=== PATIENT | male | born 1995 | race Caucasian/White ===

== ENCOUNTER 2018-09-27 10:40 | Inpatient (IN) | payer OTHER ==
[2018-09-27 11:20] LABS: PLATELET COUNT 190 10^3/uL (150-400)
--- NOTE | 2018-09-27 11:33 | EDPHY ---
H & P Stated Complaint: M1 - Personal History Current Tetanus/Diphtheria Vaccine: Yes Current Tetanus Diphtheria and Acellular Pertussis (TDAP): Yes - Medical/Surgical History Hx Asthma: No Hx Chronic Respiratory Disease: No Hx Diabetes: No Hx Cardiac Disease: No Hx Renal Disease: No Hx Cirrhosis: No Hx Alcoholism: No Hx HIV/AIDS: No Hx Splenectomy or Spleen Trauma: No - Social History Smoking Status: Never smoked Alcohol Use: None Time Seen by Provider: 09/27/18 10:48 HPI/ROS: CHIEF COMPLAINT: Homicidal ideation HISTORY OF PRESENT ILLNESS: 22-year-old male presents with homicidal ideation. He was at the crisis Center just prior to arrival and told the staff that he had been shooting animals. When they asked why, he stated that he wanted to get back at the government. The police took away his gun recently. He told the staff "what am I going to shoot now, kids in school?"The staff became very concerned about homicidal ideation and placed him on an M1 hold. He denies drugs or alcohol use in the last 24 hr. According to his mother, he has been diagnosed with multiple psychiatric illnesses and refuses to take medications. REVIEW OF SYSTEMS: complete 10 point ROS reviewed and is negative except for the noted elements in the HPI (Marely Pina) - Social History Additional Social History: Works at [employer] (Marely Pina) - Physical Exam Exam: General Appearance: Alert, cooperative Eyes: Pupils equal and round, no conjunctival pallor ENT, Mouth: Mucous membranes moist Neck: Normal inspection Respiratory: Lungs are clear to auscultation Cardiovascular: Regular rate and rhythm Gastrointestinal: Abdomen is soft and nontender Neurological: A&O, nonfocal, normal gait Skin: Warm and dry, no injuries Extremities: Inspection Psychiatric: Flat affect (Marely Pina) Constitutional: Initial Vital Signs Temperature (C) 36.9 C 09/27/18 10:53 Heart Rate 62 09/27/18 10:53 Respiratory Rate 18 09/27/18 10:53 Blood Pressure 103/59 L 09/27/18 10:53 O2 Sat (%) 97 09/27/18 10:53 O2 Delivery Mode Room Air Allergies/Adverse Reactions: No Known Allergies Allergy (Unverified 10/10/11 17:51) Home Medications: Medication Instructions Recorded [place] 03/14/12 Zoloft 03/14/12 Medical Decision Making ED Course/Re-evaluation: 3pm: signed over to Dr. Velasquez at shift change. eval pending. (Marely Pina) Other Provider: I assumed care of this patient from Dr. Pina at 3:00 p.m.. Once he learned that he would be staying in the emergency department the and that placement in a mental health facility was being sought, he became more agitated. He is given Ativan 1 mg p.r.n. Zyprexa 5 mg p.o.. Patient has been accepted at [address] [place] [address] for inpatient psychiatric hospitalization. I have completed the EMTALA form. He will be transferred by ambulance. ( Irina Velasquez) - Data Points Laboratory Results: Laboratory Results 09/27/18 11:11 09/27/18 11:11 09/27/18 09/27/18 09/27/18 11:15 11:11 11:11 WBC 4.73 10^3/uL 10^3/uL (3.80-9.50) RBC 4.70 10^6/uL 10^6/uL (4.40-6.38) Hgb 13.9 g/dL g/dL (13.7-17.5) Hct 43.3 % % (40.0-51.0) MCV 92.1 fL fL (81.5-99.8) MCH 29.6 pg pg (27.9-34.1) MCHC 32.1 g/dL L g/dL (32.4-36.7) RDW 12.2 % % (11.5-15.2) Plt Count 190 10^3/uL 10^3/uL (150-400) MPV 10.0 fL fL (8.7-11.7) Neut % (Auto) 57.9 % % (39.3-74.2) Lymph % (Auto) 33.0 % % (15.0-45.0) Barton % (Auto) 7.0 % % (4.5-13.0) Eos % (Auto) 1.1 % % (0.6-7.6) Baso % (Auto) 0.8 % % (0.3-1.7) Nucleat RBC Rel Count 0.0 % % (0.0-0.2) Absolute Neuts (auto) 2.74 10^3/uL 10^3/uL (1.70-6.50) Absolute Lymphs (auto) 1.56 10^3/uL 10^3/uL (1.00-3.00) Absolute Monos (auto) 0.33 10^3/uL 10^3/uL (0.30-0.80) Absolute Eos (auto) 0.05 10^3/uL 10^3/uL (0.03-0.40) Absolute Basos (auto) 0.04 10^3/uL 10^3/uL (0.02-0.10) Absolute Nucleated RBC 0.00 10^3/uL 10^3/uL (0-0.01) Immature Gran % 0.2 % % (0.0-1.1) Immature Gran # 0.01 10^3/uL 10^3/uL (0.00-0.10) Sodium 140 mEq/L mEq/L (135-145) Potassium 4.1 mEq/L mEq/L (3.5-5.2) Chloride 106 mEq/L mEq/L (97-110) Carbon Dioxide 28 mEq/l mEq/l (22-31) Anion Gap 6 mEq/L mEq/L (6-14) BUN 16 mg/dL mg/dL (7-23) Creatinine 0.9 mg/dL mg/dL (0.7-1.3) Estimated GFR > 60 Glucose 85 mg/dL mg/dL (70-100) Calcium 9.2 mg/dL mg/dL (8.5-10.4) Urine Opiates Screen NEGATIVE (NEGATIVE) Urine Barbiturates NEGATIVE (NEGATIVE) Ur Phencyclidine Scrn NEGATIVE (NEGATIVE) Ur Amphetamine Screen NEGATIVE (NEGATIVE) U Benzodiazepines Scrn NEGATIVE (NEGATIVE) Urine Cocaine Screen NEGATIVE (NEGATIVE) U Marijuana (THC) Screen NON-NEGATIVE H (NEGATIVE) Ethyl Alcohol < 10 mg/dL mg/dL (0-10) Medications Given: Discontinued Medications Lorazepam (Ativan) 1 mg PO EDNOW ONE Stop: 09/27/18 16:49 Last Admin: 09/27/18 16:55 Dose: 1 mg Olanzapine (Olanzapine) 5 mg PO ONCE ONE Stop: 09/27/18 16:49 Last Admin: 02/04/19 16:55 Dose: 5 mg Departure - Departure Disposition: [facility] Clinical Impression: Homicidal ideation Condition: Fair Referrals: Patient,NotPresent [Unknown] - As per Instructions
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
[2018-09-27] MEDS ORDERED: LORazepam 1 MG TAB PO ONE (16:48)
[2018-09-27] MEDS ORDERED: OLANZapine 5 MG TAB PO ONE (16:48)
[2018-09-27] MEDS ORDERED: MAGNESIUM HYDROXIDE 30 ML UDCUP PO PRN ×2 (22:00)
[2018-09-27] MEDS ORDERED: MAG HYDROX/AL HYDROX/SIMETH 30 ML UDCUP PO PRN (22:00)
[2018-09-27] MEDS ORDERED: ACETAMINOPHEN 325 MG TAB PO PRN (22:00)
--- NOTE | 2018-09-28 07:39 | ASMTTCLDSP ---
TLC Discharge Disposition Disposition: Answers: Admit Disposition Notes: Notes: Admit 3N. Discharge Concerns/Recommendations: Notes: In consultation with [facility] ED physician, Irina Velasquez MD, and on-call psychiatrist, Yassine Nova MD, both concurred that pt does appear to meet 27-65 criteria requiring psychiatric hospitalization as pt does appear to be an imminent risk of harm to self/others due to a mental illness condition. Was patient given the Answers: Yes Inpatient Behavioral Health Prohibited Belongings List while in the ED? For inpatient Yassine Nova MD admission, the following psychiatrist agreed to accept patient for admission to Behavioral Health ([facility]): Type of Hold: Answers: M1/72-hour Hold Hold initiated by: Answers: Police Date Signed: 09/28/2018 07:38 AM Electronically Signed By:Hari Pearson
--- NOTE | 2018-09-28 08:06 | ASMTBHMTP ---
Master Treatment Plan Master Treatment Plan Answers: Mood Instability with for: Psychosis Date: 09/27/2018 Diagnosis on Admission: homicidal ideation Expected length of stay: 3-5 days Reason for admission: Notes: Per Report: Pt is a 22 year old male who presented to [facility] Ed on an M1. Pt was at the crisis center and told the staff there that he had been shooting animals. When they asked why, he stated he wanted to get back at the government, The police took away his gun recently. Pt told the staff, What am I going to shoot now, Kids in school?" Pt stated he is here because "stuff that happened a couple weeks ago." Pt states he is upset about the police taking away his BB guns and taking "money "from him. Pt stated he is shooting animals because it is "my constitutional right." When asked about the comment he made to the staff at the [facility] about shooting a school, pt stated, " I was pretty high when I said that. I said, what am I supposed to do if I can't shoot animals. I didn't mean I was going to go shoot up a school." Pt denies SI/HI. Pt was living with his father in [place] but was kicked out this past June after he quit his job. Pt is now living with his mother and younger brother. When this chief underwriter met with CHRISTINE Donnelly alone, she stated, " He's not just shooting these animals, he's torturing them too. I have videos if you want to see them." Pt's mother Sabi has recordings of pt shooting rabbits and squirrels. The videos show pt shooting the animals and then recording the animals dying. [facility] Sabi also had a audio recording of pt talking with his younger brother threatening to shoot people at his younger brothers school, [employer] which was on 09/10/18. In the audio the pt is heard saying, " Fuck my job, fucking walk right into your school and start fucking shooting people." In addition to the audio and video recordings, pt had a picture of Josep Barajas on his phone. In June 2018, The FBI investigated pt due to a facebook posting pt made. Pt stated he posted a comment about "how mass shooters can get their hands on an Ar-15 but I can't get one for hunting." Pt stated the FBI showed up to his house at midnight to question him regarding the facebook posting. This chief underwriter notified case worker director Cassie Townsend about this case. Duty to warn was made. [place] Police were called and notified of pt's threat of a school shooting. Spoke with Officer Kirk . Report number [id number]. The FBI in [place] was also notified. Patient's stated presenting problems: Notes: "my mom" Patient's goals for treatment: Notes: "get out of here as soon as possible." Patient's strengths: Notes: none Identify supports outside of hospital: Notes: none Discharge criteria: Notes: Patient will demonstrate more stable mood by discharge.* Initial disposition plan/considerations: Notes: Return to work at [employer]. Master Treatment Plan Required Signatures Psychiatrist signature: Answers: Psychiatrist: RN on-shift signature: Answers: RN: Patient signature: Answers: Patient: Date Signed: 09/28/2018 08:06 AM Electronically Signed By:Benito Sierra
--- NOTE | 2018-09-28 10:52 | GCON ---
[f rep st] CONSULTATION DATE OF CONSULTATION: 09/28/2018 The patient is a 22-year-old gentleman with a history of psychiatric illness who was brought in on an M1 hold for homicidal thoughts. It sounds like a history of having a gun taken away and possible regan rming animals. He has a long history of psychiatric illness. When I speak to the patient, he denies recent fever, chills, cough, sputum, nausea, vomiting, diarrhe a. He says he smokes cigarettes. Does not drink a lot of alcohol. Does use drugs with a needle, mo st recently yesterday. Denies painful areas on his skin. REVIEW OF SYSTEMS: Complete 10-point review of systems conducted and negative except as noted in the HPI. PAST MEDICAL HISTORY: Psychiatric disorder, sounds like possible personality disorder. ALLERGIES: No known drug allergies. HOME MEDICATIONS: [place], Zoloft. SOCIAL HISTORY: As in the HPI. FAMILY HISTORY: Reviewed and unremarkable. PHYSICAL EXAMINATION: VITAL SIGNS: Temperature 36.8, blood pressure 127/72, pulse 53, breathing 14 times a minute, 97% on room air. GENERAL: No acute distress. Sclerae anicteric. Oropharynx clear. Mucous membranes moist. NECK: Supple without lymphadenopathy or JVD. LUNGS: Clear to auscultati on bilaterally. HEART: S1, S2. ABDOMEN: Soft, nontender, nondistended. LOWER EXTREMITIES: Witho ut edema. Calves are nontender. SKIN: Without rash. NEUROLOGIC: Exam is nonfocal. LABS: CBC is normal. Chem-7 is normal. Tox screen is negative for marijuana. Notably negative for opiates. ASSESSMENT/PLAN: A 22-year-old gentleman with homicidal ideation. 1. Homicidal ideation. Management per [employer] [facility]. 2. History of injection drug use. Given his tox screen it seems less likely that this is in fact tr ue. Would follow signs for skin infection; there is none on exam. 3. Disposition. Per [employer]. /[id number]/MODL
--- NOTE | 2018-09-28 11:34 | ASMTCMCOM ---
CM Note CM Note Notes: CC was able to out-reach client's employer ([employer]) at [phone]; spoke to Bryson who noted that "is fine and he will just need a doctor note before coming back to work." Date Signed: 09/28/2018 11:23 AM Electronically Signed By:Benito Sierra
--- NOTE | 2018-09-28 12:41 | ASMTLCPROG ---
Notes Note: Notes: AXIS I DIAGNOSIS Autism Spectrum Disorder 299.00(F84.0) Antisocial Personality Disorder 301.7( F60.2) Major Depressive Disorder, recurrent, severe 296.33 (F33.2) Attention Deficit/Hyperactivity Disorder combined presentation Date Signed: 09/28/2018 12:40 PM Electronically Signed By:Lucrecia Blakely
[2018-09-28] MEDS: NICOTINE POLACRILEX 2 MG GUM B PRN (16:51)
--- NOTE | 2018-09-28 20:12 | BAPA ---
[f rep st] ADMISSION PSYCHIATRIC ASSESSMENT DATE OF SERVICE: 09/28/2018 CHIEF COMPLAINT: "I don't need to be here, that transvestite loser lied." HISTORY OF PRESENT ILLNESS: Patient is a 22-year-old, male with a long history of developmental and mental health and behavioral issues. He was brought to the hospital by police after having presented with his mother for intake appointment at [facility]. 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 She states that the patient was actually precocious in most of his developmental milestones, but struggled to interact appropriately with others. This led to social issues and academic issues, and ultimately, he began to act out with substance use and oppositional defiant behaviors. When he was 14 years old, he began using marijuana, and then a close friend committed suicide when the patient was 16. Patient's mother stated that he "deteriorated a lot after that." She states that he was then hospitalized at [facility] due to his own thoughts of suicide. He was released to his mother's custody after that and she states he continued to voice suicidal ideations and actually attempted suicide within 3 hours of discharge. He was then taken to [facility] where he was hospitalized for 1 week and then discharged against his mother strenuous wishes due to continued suicidal ideation at that time. He also attempted suicide about 3 to 4 hours after this discharge and was taken to [facility] in [place] where he stayed for about a month. Patient's mother states that this was a very disagreeable environment and she ultimately affected a transfer to [facility] in [place]. The patient was treated there for about 10 months and then released to home with 20 hours of in-home therapy per week. He was diagnosed with Asperger's, attention deficit hyperactivity disorder, depression, anxiety, and possible bipolar disorder. Mother states that "he was diagnosed with just about everything, except schizophrenia." Mother states that the 20 hours per week of in-home therapy was not sufficient and she petitioned the court to order additional treatments as her now ex- disagreed with any mental health treatments at all. She states the cytogenetic technician did not agree and refused to order any additional treatments. The patient 's mother states then that she felt she had no choice and sent him to live with his father in [place] when he was 17. Mother states that he received no further treatment since that time. She reports that the patient's father never told her anything was going on, though she was aware there were difficulties. She would visit with the patient for about 2 weeks here and stated that he was somewhat strange, but did not act out. He did not go to mainstream classroom in [place] and was placed in special education. She states that he essentially did self-paced learning on the computer throughout high school. He graduated late, but did receive his high school diploma. He continued then to live with his father, and work at a fast food restaurant and the patient's mother states that he did well at that time. In June of this year, the FBI reportedly went to the patient's father 's home stating that he had been making threats to harm or kill people on Facebook and the patient's father "kicked him out." He then came to [place] to live with his mother. The plan was that the patient's father had saved up some money for him so that if he got a job and an apartment with a roommate that he could have this Thursday and begin a life. The patient's mother states that things went reasonably well when he first arrived and that he did look for work. 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 She states that he is always been punctual and consistent, and was able to maintain these jobs. Their home life, however, deteriorated. He functioned reasonably well at first, walking the dog and even cooking some meals , but then "things fell apart." He began using drugs heavily, including synthetic drugs he was ordering from [employer], Xanax, mushrooms, and daily marijuana. Patient's mother set a limit that he could not do drugs in the home or have any guns and he broke both of these fairly quickly. He was using marijuana on a daily basis and bought a BB gun, which he kept in the apartment. She also states that he was not capable of interacting with others or functioning independently. She states that "he can't think logically or reason." She also states "he has absolutely no regard for others." She states that he intended to go outside and take his BB gun shooting small animals in the neighborhood. The patient reports to me that he shot up to 800 small animals over the last year. He has numerous videos on his cell phone, which his mother copied show to me today where he would shoot a bird , a squirrel, or a rabbit and then torture it while it was dying. The patient states that he would do this "because people are mean to me so I'm mean to small animals." On one occasion, he was walking around the parking lot with what appeared to be a real pistol, but was his BB gun. The police were called and they confiscated the BB gun, but did not charge him with anything. Later, he was talking with his brother and his brother stated that he should not have that done. He then made the statement that "well, maybe I will just go shoot up your school." This concerned the patient's mother and she called the police , though they refused to do anything. She also took him to [facility] on several occasions and they refused to provide any services because he had private insurance, even though it did not cover mental health treatments. Ultimately, the patient was able to receive Medicaid and she took him in for a screening at [facility], at which time the therapist there stated that he was "way out of the scope of what we treat" and she called the police to place him on an M1 hold. He reportedly made statements about harming animals and possibly harming or killing himself. His mother states that he has said on several occasions that he would kill himself in front of her. I interviewed the patient today, and he was talkative and interactive, though was fairly hostile. He stated that the person at [facility] who he repeatedly referred to as a "transvestite" placed him on an M1 hold for essentially no reason and that he did not need to be in the hospital. He then freely admitted that he had been killing many small animals and torturing them, including "burning their face off." What he stated he would do is wound them with the BB gun and then hold them while they were still alive and take a torch and burned their faces. He stated that "this obviously really hurt and they suffered a lot." When asked if this made him feel better, he stated "if people are mean to me, then I'm mean to the animals." He was seen later in treatment planning meeting with the team and he was very angry, raising his voice, and stating that it is our fault that he was going to harm more animals. He stated "I was going to quit hurting animals, but now you have made me stay here, so I am going to hurt 100 animals for every hour that I have to be here against my will. You think you want to protect animals, but actually now more are going to get hurt. You're really in for it now." Patient is not forthcoming of much other information. He is quite guarded, though does state on several occasions during the interview that he believes the government is persecuting him and taking away various of his rights under the constitution. He will typically refer to these as amendments with a number. At one point, he states "they took away my 2nd amendment, 4th amendment , 7th amendment, and 9th amendment rights." He states that he is angry essentially at the world because he is unhappy in his life and that he takes it out on small animals to feel better. PAST PSYCHIATRIC HISTORY: Significant for 4 or 5 previous psychiatric hospitalizations. Patient's mother states that his first hospitalization was at age 16 as mentioned above. His last hospitalization was at approximately age 17. He reportedly got no treatment whatsoever between 17 and 22 while he was living with his father in [place]. Patient's mother states that patient's father "does not believe in mental health problems and refused to take him for any treatments. ALLERGIES: No known medical allergies. CURRENT MEDICATIONS: None. PAST MEDICAL HISTORY: Noncontributory. DEVELOPMENTAL HISTORY: Patient's mother states he was a normal with a term vaginal delivery without complications. He reached all of his milestones on-time or early, walking at 9 months and talking in complete sentences by the age of 4. She states he was notably earlier at all of these things than his peers. She reports normal height and weight, as well as head circumference throughout his childhood. He had no unusual or serious childhood illnesses. He did have a tendency to injure himself, however, having broken both of his legs and injured both eyes accidentally. He had delayed fine motor , but normal gross motor skills. She states he always struggled socially and has never really had friends. He had 1 friend while living in [place], but she states that he was a drug dealer and that all he did with his friend was do drugs and drink. She states that he is intelligent, but struggled academically in high school, graduating late and requiring special education. She states that his special education was also due to the fact that he was on a "violence plan." This was due to his having made threats toward others. She denies any history of actual violence. He has no history of legal problems or half-way. SUBSTANCE ABUSE HISTORY: Patient has used marijuana since the age of 14. He states that he smokes it "all day" and that he would prefer to dab, but does not have enough money. He states at one point that "I'm going to continue to hurt animals until the government will pay for my wax." He has history of also ordering "synthetic drugs" from [employer], using Xanax and taking hallucinogenic mushrooms. He has some history of possible binge alcohol use. FAMILY HISTORY: Patient denies any family history of mental illness. ADMISSION LABORATORY: CBC is normal. Serum chemistries are normal. Liver function is normal. Cholesterol is low at 96. Triglycerides are normal. Urine drug screen is positive for marijuana. MENTAL STATUS EXAMINATION: Reveals a tall, thin, unkempt, poorly groomed male. MENTAL STATUS EXAMINATION: The patient's thought content was further evident of paranoid thoughts, believing the government was trying to harm him and that others were attempting to violate his civil rights. He had a rather obtuse sense that he needed to repay his perceived transgressions from other people against small animals. He is alert and oriented to person, place, time, and situation, and his sensorium is clear. There is no evidence of intoxication or delirium. He continues to voice prominent plans to harm small animals, though denies any thought of harming people or pets. He does state at one point, however, that he wants to "shoot that transvestite in the belly with my gun and watch her slowly and painfully." His intellect appears to be low average, as evidenced by his educational, occupational history, his fund of knowledge, and vocabulary. His insight and judgment appear to be poor. IMPRESSION: Unspecified developmental disorder, possible Asperger syndrome, possible substance-induced psychosis versus schizophreniform disorder, marijuana use disorder, severe, non marijuana cannabinoid and/or unspecified substance use disorder, severe, hallucinogen use disorder, severity unknown. The patient is a 22-year-old male with a history of developmental issues, current psychosis, and violence towards animals. It sounds like he met criteria for conduct disorder in the past and may currently meet the criteria for antisocial personality disorder though I believe it is much more related to his developmental issues. He has a lot of idiosyncrasy and complete lack of ability to empathize with others. Again, while this mirrors sociopathy, I believe that it is better described by his Asperger disorder. He has had mood problems, anxiety problems, attention deficit hyperactivity disorder, and now psychosis, though I think regardless, his social difficulties and tendency toward violence are more rooted in his developmental issues. PLAN: 1. Admit to the behavior health services inpatient unit on an M1 hold. 2. We will maintain on a high level of supervision due to threats towards others and himself. 3. We will provide p.r.n. benzodiazepines and olanzapine and consider scheduled medications. The patient refuses any medications at this time, stating that he does not need them. We will evaluate to see about the permanency of any psychosis at this time and treat as needed. 4. We will engage his family and whatever resources available in the community to decide about supportive living circumstance at discharge. ESTIMATED LENGTH OF STAY: 10 days. /[id number]/MODL and [id number]/MODL MTDAmelia
--- NOTE | 2018-09-29 11:02 | PDMN ---
Medical Necessity Medical necessity: Pt meets inpt criteria per MD order and [id number], Substance-Related Disorders, Adult: Inpatient Care, 2 days. 22 y/o w/hx developmental issues admitted w/marijuana use disorder, severe and non marijuana cannabinoid and/or unspecified substance use disorder, severe, hallucinogen use disorder, severity unknown, possible substance-induced psychosis versus schizophrenifrm disorder, unspecified developmental disorder- possible Asperger syndrome, requires inpt psychiatric hospitalization for current psychosis, on M1 hold due to risk of harm to self/others due to mental illness condition.
[2018-09-29] MEDS: LORazepam 1 MG TAB PO PRN (12:08)
[2018-09-29] MEDS: OLANZapine DISINTEGR 5 MG TAB PO PRN (12:08)
--- NOTE | 2018-09-29 13:57 | SOAPPROG ---
SOAP Progress Note Assessment/Plan: Assessment: Plan: 09/29/18 13:58 Improved. Calmer today. Family meeting scheduled for tomorrow to review treatment plan. Initial observational and evaluation phase very important to understand diagnosis and direct treatment. Subjective: Pt seen, discussed with staff. Much more pleasant and conversant today. Less hostile. Less paranoid. Discussed treatment plan. He states, "I feel bad about hurting animals. I don't think I'll do that any more." No behavioral issues. Has been making an effort to go to groups. Discussed his drug use and blames his mother for taking his scale because he needs to precisely weigh his "research chemicals" so not to overdose. He describes every intention to continue using cannabis products (preferably high-potency) and synthetics in the future. Continues to refuse any medications except benzo's. Objective: Vital Signs Temp Pulse Resp BP Pulse Ox 36.8 C 56 L 14 128/62 H 93 09/29/18 06:00 09/29/18 06:00 09/29/18 06:00 09/29/18 06:00 09/29/18 06:00 MSE: Calm, interactive. Affect is brighter, less irritable. Mood is "better." TP is generally linear. TC reveals continued, but less prominent paranoia about the police, his mother and the government. Denies SI/HI/ and now states that he does not want to harm animals. - Time Spent With Patient Time Spent With Patient: 25" ICD10 Worksheet Patient Problems: Problems Problem Status Onset Homicidal ideation Acute
[2018-09-29] MEDS ORDERED: IBUPROFEN 600 MG TAB PO PRN (15:13)
--- NOTE | 2018-09-29 15:13 | SOAPPROG ---
SOAP Progress Note Assessment/Plan: Assessment: Boxer's fracture, right hand, 45 degrees of angulation. XR discussed with Radiology. Ordered orthopedics consult. Added ibuprofen for pain control; acetaminophen has already been ordered. 09/29/18 15:13 Subjective: Asked to see patient about right hand pain. He punched a wall. He complains of pain and swelling over the back of his hand. Objective: Vital Signs Temp Pulse Resp BP Pulse Ox 36.8 C 56 L 14 128/62 H 93 09/29/18 06:00 09/29/18 06:00 09/29/18 06:00 09/29/18 06:00 09/29/18 06:00 Physical Exam - Physical Exam General Appearance: WD/WN, alert, no apparent distress Extremities: other (Right hand with pain over the 5th metacarpal in considerable swelling on the volar aspect from the 3rd to 5th metacarpal. Full range of motion of the fingers and wrist.) ICD10 Worksheet Patient Problems: Problems Problem Status Onset Homicidal ideation Acute
[2018-09-30] MEDS: LORazepam 1 MG TAB PO PRN ×3 (09:33→22:10)
[2018-09-30] MEDS: OLANZapine DISINTEGR 5 MG TAB PO PRN ×2 (09:33→21:16)
--- NOTE | 2018-09-30 13:39 | ASMTBHFAM ---
Notes Note: Notes: The patient participated in a family meeting; the patient's mother, provider, and this contract technical writer were present. We discussed the patient's treatment including substance abuse, discharge plan, and suicidal and homicidal ideation. The patient denied suicidal or homicidal ideation; he reported that he was only making those threats prior to his admission. The patient lacked insight into the impact of substance abuse on his thinking and behavior. The patient demonstrated willingness to establish and work with an outpatient team upon discharge. The patient presented as labile, irritable, and with preoccupied thinking. He complained that he is "not benefitting" from inpatient care and emphasized financial and housing concerns. Date Signed: 09/30/2018 01:38 PM Electronically Signed By:Ronit Moon
--- NOTE | 2018-09-30 17:16 | SOAPPROG ---
SOAP Progress Note Assessment/Plan: Assessment: Plan: 09/29/18 13:58 Improved. Calmer today. Family meeting scheduled for tomorrow to review treatment plan. Initial observational and evaluation phase very important to understand diagnosis and direct treatment. 09/30/18 17:17 Overall improved, though regressed and more paranoid today when pressed on substance abuse and need to make life changes. Zyprexa noted to be helpful. I will add scheduled dose, monitor. Will likely petition court for COM if pt remains resistant to medication treatment. Will continue discharge planning including SA referral and possible residential tx through DD/MR. Subjective: Pt seen, discussed with staff. Interviewed alone and with mother and CC in family meeting. He remains cooperative and interactive, friendly. States he doesn't want to kill animals any more and then states he doesn't want to do any drugs any more. Later, in family meeting, he admits that this is not true, especially in regards to the drugs. He took one dose of lorazepam and Zyprexa yesterday with staff noting good benefit for calming and paranoia. In family meeting, patient was agitated, paranoid. Stated repeatedly that there was no reason for him to be admitted. He repeatedly stated, "I'd have a hole in my head if I was really suicidal." Denies making statements regarding shooting himself in the head despite mother confronting him on this. He stated numerous times that the police and the government were after him, "ruining my life". He then stated, "I hurt animals because it pisses me off that the government won't let me have drugs and takes away my stuff. They violate my first amendment right to do as much drugs as I want." He alternated from denying doing drugs to stating, "I'm always high as fuck" to stating he intended to stop doing drugs. He stated, "I only do bad things and say that shit (threats to himself and others) when I'm high." Group agreed that we would work toward a safe discharge plan to include individual and substance abuse treatment and hopefully medications. Pt placed on STC today and we discussed this inc: what he needed to do to become voluntary or discharge from the hospital. He agrees to attend groups and remain in good behavioral control. I reviewed again with him and his mother the likely benefit from antipsychotic medications inc: Zyprexa. He took one dose yesterday and noted to RN at that time that he felt calmer. RN was reported to say that he was calmer and less paranoid after this. Objective: Vital Signs Temp Pulse Resp BP Pulse Ox 36.6 C 50 L 16 112/59 L 96 09/30/18 06:00 09/30/18 06:00 09/30/18 06:00 09/30/18 06:00 09/30/18 06:00 MSE: Agitated, yelling and gesticulating. Affect is irritable, hostile at times. Mood is "really bad because I'm stuck here." TP is perseverative, linear at times. TC reveals clear paranoid thoughts of police and government controlling and persecuting him. Denies SI/HI/ at times, then changes this at other times. - Time Spent With Patient Time Spent With Patient: 35" ICD10 Worksheet Patient Problems: Problems Problem Status Onset Homicidal ideation Acute
[2018-10-01] MEDS: LORazepam 1 MG TAB PO PRN ×3 (08:39→19:59)
[2018-10-01] MEDS: OLANZapine DISINTEGR 5 MG TAB PO PRN ×2 (08:39→12:31)
--- NOTE | 2018-10-01 13:16 | ASMTBHDC ---
Notes Note: Notes: The patient signed an LJ for [facility]; sent to medical records. He expressed interest in their outpatient services. The patient requested housing resources. The patient presents as labile; he remains preoccupied with discharge and financial concerns. This property underwriter discussed with the patient coordinated entry and case management through [facility] (insurance provider). This property underwriter contacted MISTY Rosas at [facility], she requested collateral. Alison plans to connect with care coordination again on 10/04 to collaborate to support the patient. Date Signed: 10/01/2018 01:15 PM Electronically Signed By:Ronit Moon
--- NOTE | 2018-10-01 13:40 | SOAPPROG ---
SOAP Progress Note Assessment/Plan: Assessment: Plan: 09/29/18 13:58 Improved. Calmer today. Family meeting scheduled for tomorrow to review treatment plan. Initial observational and evaluation phase very important to understand diagnosis and direct treatment. 09/30/18 17:17 Overall improved, though regressed and more paranoid today when pressed on substance abuse and need to make life changes. Zyprexa noted to be helpful. I will add scheduled dose, monitor. Will likely petition court for COM if pt remains resistant to medication treatment. Will continue discharge planning including SA referral and possible residential tx through DD/MR. 10/01/18 13:41 Remains paranoid. Will observe on scheduled Zyprexa. Subjective: Pt seen, discussed with staff. Reports feeling "great." Has attended several groups, though struggles to participate meaningfully. Discussed my plan for medications inc: scheduled Zyprexa at HS. He states he will take it. No behavioral problems. No mention of delusions or sadistic fantasies today. Objective: Vital Signs Temp Pulse Resp BP Pulse Ox 36.6 C 68 16 100/61 96 10/01/18 06:00 10/01/18 06:00 10/01/18 06:00 10/01/18 06:00 10/01/18 06:00 MSE: Calm, coop. Affect is better modulated, smiles at times. Mood is "great. " TP is generally linear. TC reveals continued paranoid thoughts of government controlling and persecuting him. Actively denies SI/HI/. - Time Spent With Patient Time Spent With Patient: 25" ICD10 Worksheet Patient Problems: Problems Problem Status Onset Homicidal ideation Acute
[2018-10-01] MEDS: OLANZapine DISINTEGR 10 MG TAB PO SCH (19:59)
[2018-10-02] MEDS: LORazepam 1 MG TAB PO PRN ×2 (13:13→19:08)
[2018-10-02] MEDS: OLANZapine DISINTEGR 5 MG TAB PO PRN (13:13)
[2018-10-02] MEDS: NICOTINE POLACRILEX 2 MG GUM B PRN (15:23)
--- NOTE | 2018-10-02 15:28 | ASMTBHFAM ---
Notes Note: Notes: MOC requested to speak with CC. CC met with pt, MOC and BOC. MOC asked about pt's medications and discharge plans. MOC stated pt. cannot come to her home. CC discussed [facility]'s help with housing. Pt. asked if he would be allowed to grow pot in the building he is placed at. Pt. stated he started smoking pot when he was 14, adding at age 15 he decided he would smoke pot until he dies. Pt. stated he has a high tolerance to THC due to his chronic smoking. Pt. stated he spends $10,000 a year on pot, adding it costs more because he has to buy from drug dealers. CC informed pt the dangers of meeting with drug dealers. Pt. seemed surprised to hear he is breaking the law by smoking since he is not over 21 years old. Pt. stated he is not allowed to smoke pot in his mother or father's home. Pt. stated he does not plan to quit smoking pot, even after CC explained to benefits of quitting. MOC stated pt. wants to order drugs from [employer] to be delivered to his next residence. Date Signed: 10/02/2018 03:27 PM Electronically Signed By:Jinny Gonzalez
--- NOTE | 2018-10-02 17:21 | SOAPPROG ---
SOAP Progress Note Assessment/Plan: Assessment: Per Dr. Nova's note: 09/29/18 13:58 Improved. Calmer today. Family meeting scheduled for tomorrow to review treatment plan. Initial observational and evaluation phase very important to understand diagnosis and direct treatment. 09/30/18 17:17 Overall improved, though regressed and more paranoid today when pressed on substance abuse and need to make life changes. Zyprexa noted to be helpful. I will add scheduled dose, monitor. Will likely petition court for COM if pt remains resistant to medication treatment. Will continue discharge planning including SA referral and possible residential tx through DD/MR. 10/01/18 13:41 Remains paranoid. Will observe on scheduled Zyprexa. Subjective: Pt seen, discussed with staff. Reports feeling "great." Has attended several groups, though struggles to participate meaningfully. Discussed my plan for medications inc: scheduled Zyprexa at HS. He states he will take it. No behavioral problems. No mention of delusions or sadistic fantasies today. WEEKEND PLAN: 10/02/18 17:17 1. Patient took Zyprexa 10mg last night. He reports PRN Ativan and Zyprexa have "helped [his] brain a lot." 2. Patient denies any thoughts about hurting himself or others. However, he continues to focus on hurting animals. He says he doesn't see anything "wrong" with it. 3. Patient told CC that he planned to smoke all the marijuana he could get after he discharges. 4. Likely d/c next week. Subjective: Patient took Zyprexa at HS last night w/o any complaints. He says Zyprexa is helping his brain "a lot." He told RN that the PRN Ativan and Zyprexa were also "helping" his mind calm down and prevent intrusive thoughts. He denies any plans to hurt himself or anyone else. However, he shows no remorse about the cruelty he has inflicted on animals. Objective: Vital Signs Temp Pulse Resp BP Pulse Ox 36.8 C 70 14 100/61 94 10/02/18 06:00 10/02/18 06:00 10/02/18 06:00 10/01/18 06:00 10/02/18 06:00 MSE: Affect: Euthymic Mood: "OK" TP: Goal-directed TC: Denies any SI/HI, still thinks about hurting animals Perception: Denies AH/VH Insight/Judgment: Poor - Time Spent With Patient Time Spent With Patient: 15" - Pending Discharge Pending Discharge Within 24 Hours: No Pending Discharge Within 48 Hours: No ICD10 Worksheet Patient Problems: Problems Problem Status Onset Homicidal ideation Acute
[2018-10-02] MEDS: OLANZapine DISINTEGR 10 MG TAB PO SCH (19:08)
[2018-10-03] MEDS: LORazepam 1 MG TAB PO PRN ×2 (08:52→15:53)
[2018-10-03] MEDS: OLANZapine DISINTEGR 5 MG TAB PO PRN (08:52)
--- NOTE | 2018-10-03 15:43 | ASMTCMCOM ---
CM Note CM Note Notes: Pt. reports he is "Still mini irritated I;m here". Pt. stated he slept "alright" adding he "wakes up a lot". Pt. reports getting enough to eat and is attending groups. Pt. reports no issues with his medications. Pt. stated he is "not going to take them after I leave". Pt. stated he is only taking the medications so he can discharge sooner. Pt. stated his only issue while on the unit is "bored all the time", and "losing hundreds on dollar from missing work". Pt. denied SI, HI, AVH and paranoia. Pt. presents as alert, calm, lacking eye contact, walking away from CC, lacking insight, and not very cooperative while meeting with CC. Staff report pt. sleeping 8.5 hours and being medication compliant CC to call [facility] for assistance with pt's housing after discharge. Date Signed: 10/03/2018 03:43 PM Electronically Signed By:Jinny Gonzalez
--- NOTE | 2018-10-03 18:28 | SOAPPROG ---
SOAP Progress Note Assessment/Plan: Assessment: Per Dr. Nova's note: 09/29/18 13:58 Improved. Calmer today. Family meeting scheduled for tomorrow to review treatment plan. Initial observational and evaluation phase very important to understand diagnosis and direct treatment. 09/30/18 17:17 Overall improved, though regressed and more paranoid today when pressed on substance abuse and need to make life changes. Zyprexa noted to be helpful. I will add scheduled dose, monitor. Will likely petition court for COM if pt remains resistant to medication treatment. Will continue discharge planning including SA referral and possible residential tx through DD/MR. 10/01/18 13:41 Remains paranoid. Will observe on scheduled Zyprexa. Subjective: Pt seen, discussed with staff. Reports feeling "great." Has attended several groups, though struggles to participate meaningfully. Discussed my plan for medications inc: scheduled Zyprexa at HS. He states he will take it. No behavioral problems. No mention of delusions or sadistic fantasies today. WEEKEND PLAN: 10/02/18 17:17 1. Patient took Zyprexa 10mg last night. He reports PRN Ativan and Zyprexa have "helped [his] brain a lot." 2. Patient denies any thoughts about hurting himself or others. However, he continues to focus on hurting animals. He says he doesn't see anything "wrong" with it. 3. Patient told CC that he planned to smoke all the marijuana he could get after he discharges. 4. Likely d/c next week. 10/03/18 18:23 1. Admits meds are "helping" him. 2. Patient told CC he's only taking meds to "get out of here." Plans to return to smoking as much THC as possible after d/c. [facility] has told him he can't return to her home if he continues to use THC, but patient says he doesn't care, he'll live in a fci if necessary. 3. No intent or plan to hurt himself or anyone else. 4. D/C possible this week Subjective: Patient wearing same Grateful t-shirt as yesterday, pacing in halls. At times he is sitting down watching TV. Patient does not attend group or participate in treatment. He has been taking Zyprexa at as scheduled. He reports plan to continue to use as much THC as possible despite warnings from MD , CC and staff about risks and potential adverse effects of THC on his mood, cognitive function, judgment, motivation, attention and decision-making. He says he doesn't care about risks. Objective: Vital Signs Temp Pulse Resp BP Pulse Ox 36.6 C 75 16 138/83 H 95 10/03/18 06:00 10/03/18 06:00 10/03/18 06:00 10/03/18 06:00 10/03/18 06:00 MSE: Affect: Blunted Mood: "OK" TP: Perseverative TC: Denies SI/HI Insight/ Judgment: Poor - Time Spent With Patient Time Spent With Patient: 15" - Pending Discharge Pending Discharge Within 24 Hours: No Pending Discharge Within 48 Hours: No ICD10 Worksheet Patient Problems: Problems Problem Status Onset Homicidal ideation Acute
[2018-10-03] MEDS: OLANZapine DISINTEGR 10 MG TAB PO SCH (20:09)
[2018-10-04] MEDS: LORazepam 1 MG TAB PO PRN ×3 (09:56→20:05)
[2018-10-04] MEDS: OLANZapine DISINTEGR 5 MG TAB PO PRN ×2 (10:00→15:44)
--- NOTE | 2018-10-04 12:43 | ASMTCMCOM ---
CM Note CM Note Notes: CC spoke to Alison through [facility] at ; regarding client, etc. She noted, for CC to fill out and complete ULTC 100 form, etc. Also, noted that she will stop by on at 12:30 to meet with client and CC. She noted, that she will start client's wavier ppw, etc. The goal would be to get client into a halfway or regional center, etc. Date Signed: 10/04/2018 12:42 PM Electronically Signed By:Benito Sierra
--- NOTE | 2018-10-04 16:32 | SOAPPROG ---
SOAP Progress Note Assessment/Plan: Assessment: Plan: 09/29/18 13:58 Improved. Calmer today. Family meeting scheduled for tomorrow to review treatment plan. Initial observational and evaluation phase very important to understand diagnosis and direct treatment. 09/30/18 17:17 Overall improved, though regressed and more paranoid today when pressed on substance abuse and need to make life changes. Zyprexa noted to be helpful. I will add scheduled dose, monitor. Will likely petition court for COM if pt remains resistant to medication treatment. Will continue discharge planning including SA referral and possible residential tx through DD/MR. 10/01/18 13:41 Remains paranoid. Will observe on scheduled Zyprexa. 10/04/18 16:32 Much improved overall. CCM. Finalize d/c plan. Subjective: Pt seen, discussed with staff, chart reviewed. He is upbeat and friendly. Excited about the option of moving out of his mother's home. Agreeable to a longterm environment. Continues to perseverate on need to return to work. No behavioral issues, compliant with Zyprexa over the weekend. States he believes it is helpful. States, "I feel much clearer in my head after being in the hospital for a week and not doing any drugs." States he plans to stop using all drugs including MJ when he leaves the hospital. Objective: Vital Signs Temp Pulse Resp BP Pulse Ox 36.9 C 99 14 129/62 H 92 10/04/18 06:00 10/04/18 06:00 10/04/18 06:00 10/04/18 06:00 10/04/18 06:00 MSE: Calm, coop. Affect is euthymic, stable, approp. Mood is "good." TP is circumstantial. TC reveals no mention of paranoid thoughts today. Denies SI/HI / and repeatedly states he does not plan to harm animals when he leaves the hospital. - Time Spent With Patient Time Spent With Patient: 15" ICD10 Worksheet Patient Problems: Problems Problem Status Onset Homicidal ideation Acute
[2018-10-04] MEDS: MELATONIN 3 MG TAB PO PRN (20:05)
[2018-10-04] MEDS: OLANZapine DISINTEGR 10 MG TAB PO SCH (20:05)
[2018-10-05] MEDS: LORazepam 1 MG TAB PO PRN (16:33)
--- NOTE | 2018-10-05 16:34 | SOAPPROG ---
SOAP Progress Note Assessment/Plan: Assessment: Plan: 09/29/18 13:58 Improved. Calmer today. Family meeting scheduled for tomorrow to review treatment plan. Initial observational and evaluation phase very important to understand diagnosis and direct treatment. 09/30/18 17:17 Overall improved, though regressed and more paranoid today when pressed on substance abuse and need to make life changes. Zyprexa noted to be helpful. I will add scheduled dose, monitor. Will likely petition court for COM if pt remains resistant to medication treatment. Will continue discharge planning including SA referral and possible residential tx through DD/MR. 10/01/18 13:41 Remains paranoid. Will observe on scheduled Zyprexa. 10/04/18 16:32 Much improved overall. CCM. Finalize d/c plan. 10/05/18 16:34 Psychosis: Continued improvement. CCM. Subjective: Pt seen, discussed with staff, interviewed in Treatment Team meeting. Reviewed again plan of care including meeting with Medicaid onsite case manager on . He remains motivated for this. Remains friendly with no behavioral issues or aggression. Compliant with meds. No SE's noted. Objective: Vital Signs Temp Pulse Resp BP Pulse Ox 36.6 C 65 15 129/62 H 95 10/05/18 06:00 10/05/18 06:00 10/05/18 06:00 10/04/18 06:00 10/05/18 06:00 MSE: Adequately groomed, pleasant and cooperative. Affect is bright, stable, approp. Mood is "good." TP is linear. TC reveals no overt psychosis. Denies SI/HI/ or intent to harm animals. - Time Spent With Patient Time Spent With Patient: 25" ICD10 Worksheet Patient Problems: Problems Problem Status Onset Homicidal ideation Acute
[2018-10-05] MEDS: OLANZapine DISINTEGR 10 MG TAB PO SCH (19:15)
[2018-10-05] MEDS: MELATONIN 3 MG TAB PO PRN (19:16)
[2018-10-06] MEDS: OLANZapine DISINTEGR 5 MG TAB PO PRN (09:12)
[2018-10-06] MEDS: LORazepam 1 MG TAB PO PRN ×3 (09:12→18:18)
--- NOTE | 2018-10-06 11:20 | ASMTCMCOM ---
CM Note CM Note Notes: CC spoke to MOC at ; spoke directly MOC about meeting, guardianship and bringing animal. CC reinforced idea of seeking guardianship, etc. CC spoke to mother about not bringing family animal on the unit. MOC noted, will be on the unit tomorrow and will ask client tomorrow, if client wants MOC to be in the meeting, etc. [facility] had no further questions or concerns for this advertising copywriter at this time. Date Signed: 10/06/2018 11:19 AM Electronically Signed By:Benito Sierra
--- NOTE | 2018-10-06 15:39 | SOAPPROG ---
SOAP Progress Note Assessment/Plan: Assessment: Plan: 09/29/18 13:58 Improved. Calmer today. Family meeting scheduled for tomorrow to review treatment plan. Initial observational and evaluation phase very important to understand diagnosis and direct treatment. 09/30/18 17:17 Overall improved, though regressed and more paranoid today when pressed on substance abuse and need to make life changes. Zyprexa noted to be helpful. I will add scheduled dose, monitor. Will likely petition court for COM if pt remains resistant to medication treatment. Will continue discharge planning including SA referral and possible residential tx through DD/MR. 10/01/18 13:41 Remains paranoid. Will observe on scheduled Zyprexa. 10/04/18 16:32 Much improved overall. CCM. Finalize d/c plan. 10/05/18 16:34 Psychosis: Continued improvement. CCM. 10/06/18 15:41 Psychosis: Approaching stability. CCM. Subjective: Pt seen, discussed with staff. Reports feeling "good, ready to go home." Continues to worry and perseverate on need/desire to go home and go back to work. No behavioral issues noted. No aggression. Aware that porter sample case is coming tomorrow to evaluate. Pt's court-appointed health care attorney contacted CC to ask if we plan "to keep patient for a month until he can go to a correction." Objective: Vital Signs Temp Pulse Resp BP Pulse Ox 36.7 C 76 16 115/58 L 93 10/06/18 06:00 10/06/18 06:00 10/06/18 06:00 10/06/18 06:00 10/06/18 06:00 MSE; Moderately anxious, friendly and cooperative. Affect is euthymic, though anxious, stable, approp. Mood is "good." TP is generally linear with ongoing perseverations. TC reveals no overt psychosis. Denies SI/HI/. - Time Spent With Patient Time Spent With Patient: 15" ICD10 Worksheet Patient Problems: Problems Problem Status Onset Homicidal ideation Acute
[2018-10-06] MEDS: OLANZapine DISINTEGR 10 MG TAB PO SCH (18:57)
[2018-10-06] MEDS: MELATONIN 3 MG TAB PO PRN (18:57)
[2018-10-07] MEDS: LORazepam 1 MG TAB PO PRN ×3 (04:09→19:53)
--- NOTE | 2018-10-07 13:39 | ASMTCMCOM ---
CM Note CM Note Notes: CC meets with MOC, client and Case workers (Paula and resident care supervisor) from [facility]. Client was able to stay regulated during most of the meeting; however, became frustrated and asked to go back to his room, etc. [facility], CC and MOC are working to get client additional resources. MOC will be working on guardianship as well as contacting her insurance provider about neuropsychology testing, etc. CC will fax over ULTC 100.00 ppw to [facility] and [facility]. [facility] will provide additional resources for temp. group homes, etc to hospital CC. MOC and CC will meet again on Thursday as well as be in touch with [facility] case workers. Date Signed: 10/07/2018 01:39 PM Electronically Signed By:Benito Sierra
--- NOTE | 2018-10-07 16:26 | SOAPPROG ---
SOAP Progress Note Assessment/Plan: Assessment: Plan: 09/29/18 13:58 Improved. Calmer today. Family meeting scheduled for tomorrow to review treatment plan. Initial observational and evaluation phase very important to understand diagnosis and direct treatment. 09/30/18 17:17 Overall improved, though regressed and more paranoid today when pressed on substance abuse and need to make life changes. Zyprexa noted to be helpful. I will add scheduled dose, monitor. Will likely petition court for COM if pt remains resistant to medication treatment. Will continue discharge planning including SA referral and possible residential tx through DD/MR. 10/01/18 13:41 Remains paranoid. Will observe on scheduled Zyprexa. 10/04/18 16:32 Much improved overall. [facility]. Finalize d/c plan. 10/05/18 16:34 Psychosis: Continued improvement. [facility]. 10/06/18 15:41 Psychosis: Approaching stability. [facility]. 10/07/18 16:25 Psychosis: Improved with Zyprexa. Will CCM. Await recommendations from rn case management. Subjective: Pt seen, discussed with staff. Reports feeling "really good." Asks numerous times throughout the day when the rn case management will be here. Remains compliant with meds. No behavioral issues. Objective: Vital Signs Temp Pulse Resp BP Pulse Ox 36.6 C 91 16 107/67 95 10/07/18 06:00 10/07/18 06:00 10/07/18 06:00 10/07/18 06:00 10/07/18 06:00 MSE: Calm, coop. Affect is euthymic, stable, approp. Mood is "good." TP is generally linear, though he perseverates at times. TC reveals some continued paranoia. - Time Spent With Patient Time Spent With Patient: 15" ICD10 Worksheet Patient Problems: Problems Problem Status Onset Homicidal ideation Acute
[2018-10-07] MEDS: MELATONIN 3 MG TAB PO PRN (19:52)
[2018-10-07] MEDS: OLANZapine DISINTEGR 10 MG TAB PO SCH (19:52)
--- NOTE | 2018-10-08 08:07 | SOAPPROG ---
SOAP Progress Note Assessment/Plan: Assessment: Autism Spectrum Disorder. Improvement noted. (see subjective/objective note). Patient could benefit from continued inpatient hospitalization for crisis stabilization, safety, and medication evaluation. Support system has inability to manage functional impairment at lower level of care. Plan: 1. Psychotropic medications: No med changes at this time. 2. Review with patient informed consent and recommendations for psychotropic medication treatment listed below 3. Labs: no additional labs at this time 4. Therapy: continue milieu and group therapy 5. Further investigation including gathering information from patients relatives and review of past case records to inform treatment plan. 6. Safety/Wellness plan and follow-up outpatient appointments to be established prior to discharge. Next steps are for patient to meet with plant care worker to plan a safe discharge plan and establish outpatient services for ongoing treatment. 7. Confer with inpatient treatment team regarding treatment plan. 8. Psychosocial stressors addressed through business case analyst. 9. Legal status: [facility] [[email or web address]] 10. Consider discharge on Thursday if patient is in stable condition, safe, and has a safe discharge plan. PSYCHOTROPIC MEDICATION TREATMENT INFORMED CONSENT and RECOMMENDATIONS: Review nature of condition, diagnosis, and prognosis. Review nature and purpose of psychotropic medication treatment. Review type of psychotropic medications being ordered. Review risk and benefits of psychotropic medication treatment. Review probable length of time patient will need to take medications. Review risk and benefits of not undergoing psychotropic medication treatment. Review alternative treatments to psychotropic medications. Review psychotropic medications contraindications, drug-drug interactions, side effects, and importance of reporting any side effects to a psychiatric provider or nurse during inpatient hospitalization, and upon discharge to patients psychiatric outpatient provider, primary care provider, or other health care aid. Review importance of asking a nurse, psychiatric provider, or primary care provider any questions or problems concerning the psychotropic medications. Verify patient understands the information that has been provided, and understands, accepts, and agrees to psychotropic medications. Review patients safety plan and importance of patient to report to staff while hospitalized if patient is ever a danger to self/others, or unable to care for self, and upon discharge, the importance for patient to contact [facility] or [facility], or go to the nearest emergency room, if patient is ever a danger to self/others, or unable to care for self. Recommend that upon discharge patient establish medication management treatment with a psychiatric provider, establishes routine therapy appointments, and follow-up with primary care provider. Verify patient understands and agrees to these recommendations. 10/08/18 08:07 Subjective: Following up with patient for evaluation of safety. Patient states, "Doing fine , just want to know when I am getting out of here. Meeting did not go well yesterday. They asked me to leave the meeting." Patient does not report undesirable side effects from the medications, and agrees to continue current medications. Patient denies SI/HI. Objective: Vital Signs Temp Pulse Resp BP Pulse Ox 36.7 C 88 20 112/79 96 10/08/18 06:00 10/08/18 06:00 10/08/18 06:00 10/08/18 06:00 10/08/18 06:00 NURSING REPORT: Consulted with nursing for update on patients progress in treatment. Nurses report patient is engaged in treatment, is attending groups, slept 8 hours, expresses the following psychiatric symptoms: anxiety; exhibits the following psychiatric symptoms: at times irritable and agitated; is agreeable to medications and taking as prescribed with no report of side effects , with no s/s of EPS/akathisia, and denies SI/HI, denies A/V hallucinations, and denies delusions. MSE: The patient is an under-nourished male looking stated chronological age. Attire is appropriate and dress is casual. Grooming status is appropriate. Ambulation is independent. Gait is normal and coordinated. Posture is normal and relaxed. Eye contact is appropriate. Motor activity is appropriate with purposeful, organized, coordinated movements; with no involuntary movements. Attitude is cooperative, at times guarded. Patient appears attentive and does relate well to this interviewer. Language production is spontaneous. R/R/V are normal. Tone is irritable. Articulation is clear. Patient reports mood as okay with congruent affect. Patients thought process is fairly linear and logical. Patient does not report suicidal/homicidal thoughts, ideas, or plans. Patient denies auditory, visual hallucinations. Patient denies delusions. Patient does not appear to be attending to internal stimuli. Patients attention and concentration are fair. Patient is oriented to person, place, time. Patients insight and judgment poor. - Time Spent With Patient Time Spent With Patient: 15 minutes, met with patient individually. - Pending Discharge Pending Discharge Within 24 Hours: No Pending Discharge Within 48 Hours: No ICD10 Worksheet Patient Problems: Problems Problem Status Onset Homicidal ideation Acute
[2018-10-08] MEDS: LORazepam 1 MG TAB PO PRN ×3 (09:19→19:18)
--- NOTE | 2018-10-08 12:37 | ASMTCMCOM ---
CM Note CM Note Notes: Pt. reports feeling "mini anxious....want to get out of here". Pt. reports "kept waking up" last night. Pt. stated his meeting was "not good. Won't be able to find housing for me. Will take up to 20 years". Pt. stated he was "kicked out of the meeting", adding "just because" as to why he was kicked out. Pt. stated he wants to discharge to "any place" adding he is willing to go to the homeless correction. CC asked about pt's medication, pt stated "don't really feel it" adding he thinks he is receiving placebos. Pt. stated he has "decided going to stop going to groups", adding he has been to them all. Pt. stated he doesn't know why he can't be discharged. Pt. stated he was told if he took his medication and attended groups he could leave, pt. stated he has been doing these and has not been released. Pt. denied SI, HI, AVH and paranoia. Pt. stated he can get himself to his follow up appointments. Pt. presents as alert, lacking insight, mostly calm, fair eye contact, unkempt, passive, and somewhat cooperative. Staff report pt. sleeping 9.5 hours and being medication compliant. CC faxed pt's ULTC 100 to [facility], including pt's social security number. Date Signed: 10/08/2018 12:36 PM Electronically Signed By:Jinny Gonzalez
--- NOTE | 2018-10-08 14:35 | ASMTBHFAM ---
Notes Note: Notes: CC spoke with pt's CHRISTINE, Sabi, ([phone]). MOC stated there are a limited number of neuropsychologist in the area. MOC asked what to do if no one is able to do an evaluation on the pt. MOC asked what Medicaid could offer if no one is able to evaluate the pt. CC encouraged MOC to start with calling the neuropsychologist providers first. CC asked about the [facility] yesterday. MOC stated pt. voluntarily left the meeting yesterday, adding the CC stated pt. may feel better not being present during the meeting. MOC stated was "derailing the meeting" by stating all he wants is to discharge from the hospital. MOC stated pt. "wasn't understanding what the meeting was for". MOC asked where pt. will stay between discharging from the hospital and being placed in a fdc. Date Signed: 10/08/2018 02:34 PM Electronically Signed By:Jinny Gonzalez
[2018-10-08] MEDS: OLANZapine DISINTEGR 10 MG TAB PO SCH (19:13)
[2018-10-08] MEDS: MELATONIN 3 MG TAB PO PRN (19:13)
[2018-10-09] MEDS: LORazepam 1 MG TAB PO PRN ×3 (08:34→20:22)
--- NOTE | 2018-10-09 12:27 | ASMTCMCOM ---
CM Note CM Note Notes: Pt reports feeling "alright, I guess". Pt. stated he woke up at 2am and struggled to fall back to sleep. Pt. reports having a "lot of anxiety" about his job. Pt. stated his jobs will "probably cut down my hours". Pt. stated he has not informed his jobs he is currently in the hospital. Pt. stated he doesn't believe a hospital excuse letter will be enough for his work. Pt. stated he doesn't feel his medications are working and plans to stop taking them upon discharge. Pt. denied SI, HI, AVH and paranoia. CC discussed with pt why he needs to stay in the hospital, to allow staff to secure a safe discharge and follow up plan. Pt. stated he doesn't want these things and would rather be homeless. Pt. stated he does not want to live in a shelter, adding he believes he'll be kicked out of the shelter for using drugs. Pt. stated he wants more privacy to be able to grow marijuana. Pt. stated if he can grow marijuana at the shelter, he is willing to stay there. Pt. stated if he is homeless he "will shoot animals all day long". Pt. stated he shots animals because he has no money and it's a way for him to deal with his anger. Pt. was unable to state how he is controlling his anger while on the unit. Pt. stated if he loses hours at work from being in the hospital, he will "burn one animal alive for each day I am here". Pt. stated he also plans to continue "burning animals faces off with my blow torch". Pt. shared he has "several" BB guns at home. Pt. stated he "don't plan on staying sober". Pt. presents as alert, calm, lacking insight, fair eye contact, and somewhat cooperative. Staff reports pt. sleeping 9 hours and being medication compliant. CC will meet with [facility] on Thursday to discuss pt's housing. Date Signed: 10/09/2018 12:26 PM Electronically Signed By:Jinny Gonzalez
--- NOTE | 2018-10-09 18:12 | SOAPPROG ---
SOAP Progress Note Assessment/Plan: Assessment: Per Dr. Nova's note: 10/04/18 16:32 Much improved overall. [facility]. Finalize d/c plan. 10/05/18 16:34 Psychosis: Continued improvement. [facility]. 10/06/18 15:41 Psychosis: Approaching stability. [facility]. 10/07/18 16:25 Psychosis: Improved with Zyprexa. Will CCM. Await recommendations from caser up. Subjective: Pt seen, discussed with staff. Reports feeling "really good." Asks numerous times throughout the day when the caser up will be here. Remains compliant with meds. No behavioral issues. WEEKEND PLAN: 10/09/18 18:06 1. Patient stable, no behavioral issues on unit. 2. Patient repeatedly asks MD and CC, "when can I leave." CC reminds patient of meeting on Thursday with his [facility], [facility] and [facility] staff. They explained to patient they are working on temporary placement since he can't return to his [facility]s home. Patient doesn't agree to placement in usp and said on Thursday he would leave and "stop taking meds" as soon as he discharges. 3. If patient chooses not to accept voluntary placement in usp or residential facility, there is no other option than staying at homeless long term since patient doesn't have financial means to support himself or live with roommates. [facility] has said she does not want him back in her house. That doesn't leave many options for patient. 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 4. No change to meds 5. [facility] Subjective: Patient was asked to leave discharge planning meeting yesterday when he became agitated and could not calm himself down. According to CC who attended meeting, patient did not want to follow treatment team's and [facility] recommendation that he live at usp. [facility] and [facility] were both willing to try to assist family with placement, but patient said he would leave usp as soon as he was discharged and "stop taking meds." If patient is not a good candidate for skilled nursing placement because he refuses to accept outpatient treatment, then family and outpatient providers may need to think of another plan. Objective: Vital Signs Temp Pulse Resp BP Pulse Ox 36.8 C 80 16 106/68 94 10/09/18 06:00 10/09/18 06:00 10/09/18 06:00 10/09/18 06:00 10/09/18 06:00 MSE: Affect: Flat Mood: "OK" TP: Disorganized, illogical TC: Denies any SI/HI , but still threatens to torture and kill many animals for "every day you keep me here" Insight/Judgment: Impaired - Time Spent With Patient Time Spent With Patient: 15" - Pending Discharge Pending Discharge Within 24 Hours: No Pending Discharge Within 48 Hours: No ICD10 Worksheet Patient Problems: Problems Problem Status Onset Homicidal ideation Acute
[2018-10-09] MEDS: MELATONIN 3 MG TAB PO PRN (20:22)
[2018-10-09] MEDS: OLANZapine DISINTEGR 10 MG TAB PO SCH (20:22)
[2018-10-10] MEDS: LORazepam 1 MG TAB PO PRN ×3 (09:59→19:01)
--- NOTE | 2018-10-10 12:16 | ASMTBHDC ---
Notes Note: Notes: Pt. reports feeling "pretty good". Pt. stated his mother brought books in for him, due to him being bored. Pt. reports sleeping "alright" adding he woke up post closing specialist again. Pt. stated his medications "don't really know. Don't do anything". Pt. reports attending groups and getting enough to eat. Pt. stated he needs to get his items from his home. Pt. stated his father stated he is willing to use money FOC has been saving for pt to pay for the first three months of an apartment. Pt. denied SI, HI, AVH and paranoia. Pt. stated his mother will be visiting today. Pt. presents as alert, calm, sitting on his bed with book, intermittent eye contact, passive at times, and cooperative. Staff report pt. sleeping 9.5 hours and being medication compliant. Meeting planned for Thursday with MOC and CC to review updates with [facility] and discharge planning. Date Signed: 10/10/2018 12:15 PM Electronically Signed By:Jinny Gonzalez
--- NOTE | 2018-10-10 16:12 | SOAPPROG ---
SOAP Progress Note Assessment/Plan: Assessment: Per Dr. Nova's note: 10/04/18 16:32 Much improved overall. [facility]. Finalize d/c plan. 10/05/18 16:34 Psychosis: Continued improvement. [facility]. 10/06/18 15:41 Psychosis: Approaching stability. [facility]. 10/07/18 16:25 Psychosis: Improved with Zyprexa. Will CCM. Await recommendations from case therapist. Subjective: Pt seen, discussed with staff. Reports feeling "really good." Asks numerous times throughout the day when the case therapist will be here. Remains compliant with meds. No behavioral issues. WEEKEND PLAN: 10/09/18 18:06 1. Patient stable, no behavioral issues on unit. 2. Patient repeatedly asks MD and CC, "when can I leave." CC reminds patient of meeting on Thursday with his [facility], [facility] and [facility] staff. They explained to patient they are working on temporary placement since he can't return to his [facility]s home. Patient doesn't agree to placement in [facility] and said on Thursday he would leave and "stop taking meds" as soon as he discharges. 3. If patient chooses not to accept voluntary placement in [facility] or residential facility, there is no other option than staying at homeless [facility]cf since patient doesn't have financial means to support himself or live with roommates. [facility] has said she does not want him back in her house. That doesn't leave many options for patient. Recommend leelee discussion with [facility], [facility] and [facility] whether patient is a good candidate for emt intermediate placement since he has consistently refused their recommendations and shown no willingness to accept outpatient mental health treatment. 4. No change to meds 5. [facility] 10/10/18 16:08 1. Patient constantly asking about discharge even though MD and CC have repeatedly explained that treatment team is working with patient, family and outpatient providers on placement. Patient continues to insist he doesn't want placement and refuses to participate in outpatient treatment with [facility]. MD will f/u with MOC and CC who has coordinated with [facility] to determine what other options are available for patient. 2. Patient attending groups briefly. He usually leaves before group is completed. 3. [facility] Subjective: Patient is sleeping most of the day. He did attend a couple groups this AM, but left abruptly when he got "bored." Patient continues to ask about discharge. When he's told that MOC and outpatient providers want him to stay in [facility] after discharge, patient says he won't do it and will "leave" any [facility]. He also refuses to see providers at [facility] for meds and follow up treatment. Objective: Vital Signs Temp Pulse Resp BP Pulse Ox 36.5 C 68 16 111/69 97 10/10/18 06:00 10/10/18 06:00 10/10/18 06:00 10/10/18 06:00 10/10/18 06:00 MSE: Affect: Calm Mood: "OK" TP: Perseverates about discharge TC: Denies SI/ HI, but repeatedly tells CC and other staff he plans on torturing as many animals as he can once he's discharged. At times patient uses this as a threat to coerce staff into discharging him sooner ("I'm going to kill an animal for every day you keep me in here"). Patient is fully aware this is unlawful, criminal behavior and that it offends the moral sensibilities of staff members on the unit. Patient understands his behavior is morally offensive and illegal, but persists in making threats anyway. Insight/Judgment: Poor - Time Spent With Patient Time Spent With Patient: 15" - Pending Discharge Pending Discharge Within 24 Hours: No Pending Discharge Within 48 Hours: No ICD10 Worksheet Patient Problems: Problems Problem Status Onset Homicidal ideation Acute
[2018-10-10] MEDS: OLANZapine DISINTEGR 10 MG TAB PO SCH (19:32)
[2018-10-10] MEDS: MELATONIN 3 MG TAB PO PRN (19:33)
[2018-10-11] MEDS: LORazepam 1 MG TAB PO PRN ×3 (08:41→19:11)
--- NOTE | 2018-10-11 13:30 | SOAPPROG ---
SOAP Progress Note Assessment/Plan: Assessment: Per Dr. Nova's note: 10/04/18 16:32 Much improved overall. [facility]. Finalize d/c plan. 10/05/18 16:34 Psychosis: Continued improvement. [facility]. 10/06/18 15:41 Psychosis: Approaching stability. [facility]. 10/07/18 16:25 Psychosis: Improved with Zyprexa. Will [facility]. Await recommendations from caser up. Subjective: Pt seen, discussed with staff. Reports feeling "really good." Asks numerous times throughout the day when the caser up will be here. Remains compliant with meds. No behavioral issues. WEEKEND PLAN: 10/09/18 18:06 1. Patient stable, no behavioral issues on unit. 2. Patient repeatedly asks MD and CC, "when can I leave." CC reminds patient of meeting on Thursday with his [facility], [facility] and [facility] staff. They explained to patient they are working on temporary placement since he can't return to his [facility] 's home. Patient doesn't agree to placement in retirement and said on Thursday he would leave and "stop taking meds" as soon as he discharges. 3. If patient chooses not to accept voluntary placement in retirement or residential facility, there is no other option than staying at homeless skilled nursing since patient doesn't have financial means to support himself or live with roommates. [facility] has said she does not want him back in her house. That doesn't leave many options for patient. Recommend leelee discussion with [facility], [facility] and [facility] whether patient is a good candidate for long term care pharmacist placement since he has consistently refused their recommendations and shown no willingness to accept outpatient mental health treatment. 4. No change to meds 5. [facility] 10/10/18 16:08 1. Patient constantly asking about discharge even though MD and CC have repeatedly explained that treatment team is working with patient, family and outpatient providers on placement. Patient continues to insist he doesn't want placement and refuses to participate in outpatient treatment with [facility]. MD will f/u with MOC and CC who has coordinated with [facility] to determine what other options are available for patient. 2. Patient attending groups briefly. He usually leaves before group is completed. 3. [facility] 10/11/18 12:52 1. and CC had lengthy phone conversation with behavioral health home health care case manager with [facility], Alison, who has been working with client, MOC and [facility] team on discharge planning. Here is a summary of that discussion: -Alison states that [facility] is trying to assist patient and family with "transitional housing." Alison recommended the following placement options: [facility], [facility] and [facility]. She stated that she didn't think patient would qualify for placement at "any of these facilities" d/t his lack of willingness to participate in treatment. [facility] and [facility] are substance abuse treatment facilities and patient has adamantly stated he doesn't want SA tx and refuses to quit using drugs, especially THC, which would be a condition of placement at these 2 facilities. Nonetheless, [facility] has requested CC send referral packet to these placement options. -Alison acknowledged that after the meeting last week, she believes treatment options for client are "extremely limited" because he "doesn't want treatment" and because he "refuses to follow through with outpatient services." She stated that [facility] is "not willing to consider this patient" because Abdulkadir refuses to attend outpatient appointments and continue taking meds outside hospital. -[facility] was under the impression that if she had guardianship, she could force patient to undergo residential substance abuse treatment. CC spoke to [facility] and explained that patient had to be willing to stop using drugs and consent to voluntary treatment, which he has refused. -Alison stated that the only outpatient treatment that is available to patient at this time is through [facility]. CC sent referral to [facility] and is waiting for intake appointment. -Alison requested stepdown to ATU while patient is seeing providers at [facility], but says she thinks patient is "going to refuse" based on his statements to her last week. 2. CC spoke to [facility] and updated her on what treatment options [facility] team and [facility] can assist with. CC explained that she will send referral packets to all transitional housing options [facility] has identified. [facility] said she would like patient to go to residential substance abuse treatment, but now understands that patient would have to agree to stop using drugs and be willing to participate in treatment. [facility] admits that patient "wont' do that." 3. [facility] told CC that [facility] in [place] has been "keeping part" of patient's paycheck each month in savings account. [facility] planned to use that money to help patient afford his own apartment. But [facility] says [facility] won't give patient the money to rent his own place when he discharges b/c [place] and [facility] don't want money going "to buy drugs." CC explained that if patient refuses to go to treatment facility and family won't give him access to his savings, then he will likely be homeless. [facility] still said she didn't want patient to have access to savings b/ c she thinks he'll spend him money on drugs. 4. CC told [facility] that patient reports he plans to obtain firearms from his FOC. [facility] said [facility] does have firearms and thought of giving guns to patient "one day. " But she says she will "talk to" [facility] and impress on him that patient should not have access to any kind of weapons since he has made threats to harm people in past, and has been using BB gun to shoot animals in his neighborhood. [facility] says she has reported patient to [facility] recently for killing animals. Patient did have police contact recently when neighbor reported him for shooting animals with BB gun. [facility] states she told police that he has been torturing and killing animals. She claims police told her they "weren't going to press any charges." 5. Before patient is discharged, recommends CC contact [facility] and verify that there are no pending legal issues that would prevent patient from being discharged back into the community. 6. [facility] has list of neuropsychologists and she is trying to schedule an outpatient appointment for a complete neuropsych diagnostic evaluation. 7. asked Alison about possibility of patient going to one of the state- funded Residential Centers for clients with DD. Alison stated that would be a "retirement" goal but would take "many months." She mentioned that patient would first need to qualify for a DD waiver, which might take a "long time." [facility] is not even sure patient would meet criteria for a DD waiver. 8. Based on lengthy conversations with CC, Alison and collateral from [facility], recommends the following course of action: a) CC to send referral packet to [facility], [facility] and [facility]. If these facilities decline patient or he refuses to participate in their treatment programs, would suggest family come to some agreement with patient that they will support him financially in return for his compliance with outpatient mental health treatment and abstinence from all drugs, including THC. Patient can receive substance abuse treatment through [facility] if he chooses. b) If family is not wiling to support patient financially as long as he is in treatment, or patient refuses, then patient will need referral to homeless skilled nursing. c) Schedule an intake appointment with [facility] for outpatient behavioral health services including therapy, groups, substance abuse treatment and medication management. [facility] can also provide case management services to assist patient with navigating housing and other social research assistant in the community. d) Prior to d/c, CC needs to contact [facility] to find out if patient can be discharged back into the community. Subjective: Patient pacing in hallways, wearing same hoodie sweatshirt he has worn all weekend. He continues to ask MD and any staff that passes by him "when am I going to leave here?" Patient has no insight into his condition or the harm that his behaviors have caused at home. His MOC reports multiple police contacts recently. Someone called 911 to report patient was shooting deer and rabbits with BB gun. [facility] says police told her they were not going to press any charges. Objective: Vital Signs Temp Pulse Resp BP Pulse Ox 36.7 C 78 16 110/55 L 96 10/11/18 06:00 10/11/18 06:00 10/11/18 06:00 10/11/18 06:00 10/11/18 06:00 MSE: Affect: Flat Mood: "Good" TP: Perseverates on discharge TC: Denies SI/HI , but told [facility] recently "I like killing animals" and has made threats to staff that he plans to continue harming animals after he leaves Insight/Judgment: Poor - Time Spent With Patient Time Spent With Patient: 15" + 45" with collaterals - Pending Discharge Pending Discharge Within 24 Hours: No Pending Discharge Within 48 Hours: No ICD10 Worksheet Patient Problems: Problems Problem Status Onset Homicidal ideation Acute
--- NOTE | 2018-10-11 13:51 | ASMTBHFAM ---
Notes Note: Notes: CC spoke with CHRISTINESabi ([phone]) MOC stated she filed the guardianship paperwork on Thursday and is waiting to hear about a court date. CC informed MOC, pt has been stating he wants to go to the homeless prison and will not stay at a long-term. MOC stated she believes the pt will be more agreeable to staying at one when he discharges. MOC stated FOC has been "keeping a potion of his [pt's] paychecks", adding FOC won't give the pt the money "untill he knows it won't go towards drugs". MOC stated she feels "not a safe situation if not were supervised". MOC stated PAZ has guns at his home in [place] MOC stated she will speak to [facility] about not sending those guns to the pt. MOC asked about pt getting substance treatment, after acknowledging the pt doesn't want substance treatment. MOC stated she did not contact any neuropsychologist over the weekend, CC encouraged MO to start calling neuropsychologists. MOC stated pt has been "saying some disturbing things", MOC gave the example of pt. stated "I really like killing mom". MOC stated she feels the patient is " a danger to himself and others". MOC stated pt. "lacks the ability to understand other people's persepctives". Date Signed: 10/11/2018 01:50 PM Electronically Signed By:Jinny Gonzalez
--- NOTE | 2018-10-11 14:01 | ASMTCMCOM ---
CM Note CM Note Notes: Pt. reports feeling "alright, mini irritated still being here". Pt. stated "don't feel any different" about his medications. Pt. stated he plans to stop taking his medications when he leaves the hospital. Pt. stated he is "willing to go to any place, as long as I can smoke". CC discussed sober living homes as a possible transition housing for him, pt. stated he still plans to continue using drugs. Pt. asked if CC can schedule him an appointment to get into the homeless usp. CC informed pt he would not be allowed to smoke pot at the homeless usp, pt stated he could smoke during the day and then go into the usp. Pt. also stated "I can hide my pipe somewhere". CC discussed the negative effects of continuing to use drugs with the pt, pt was not receptive. Pt. denied SI, HI, AVH and paranoia. Pt. approached CC numerous times throughout the day asked when he can discharge and continually agreeing then disagreeing about where he will go for housing upon discharge. Pt. presents as alert, lacking insight, intermittent eye contact, and mostly cooperative. Staff report pt. sleeping 8 hours and being medication compliant. [facility], including [facility], [facility] and [facility] Date Signed: 10/11/2018 02:01 PM Electronically Signed By:Jinny Gonzalez
[2018-10-11] MEDS: OLANZapine DISINTEGR 10 MG TAB PO SCH (20:06)
[2018-10-11] MEDS: MELATONIN 3 MG TAB PO PRN (20:06)
[2018-10-12] MEDS: LORazepam 1 MG TAB PO PRN ×3 (09:00→19:05)
--- NOTE | 2018-10-12 11:23 | ASMTCMCOM ---
CM Note CM Note Notes: CC out-reached MOC at to talk about moving forward with client on out-patient basis, etc. No answer, CC was not able to left VM, etc. Will try back.* Date Signed: 10/12/2018 11:22 AM Electronically Signed By:Benito Sierra
--- NOTE | 2018-10-12 13:23 | ASMTCMCOM ---
CM Note CM Note Notes: CC spoke to MOC briefly and she noted that she has a guardianship meeting with the court tomorrow at 9am. CC confirmed with MOC a family meeting with CC around client's current situation and options at 12:30pm tomorrow. MOC did sound hesitant to have client back in the home; however, CC will encourage MOC continue with guardianship as well as look into additional housing options including returning home until client has all necessary services in place, etc. Date Signed: 10/12/2018 01:22 PM Electronically Signed By:Benito Sierra
--- NOTE | 2018-10-12 15:06 | SOAPPROG ---
SOAP Progress Note Assessment/Plan: Assessment: Plan: 09/29/18 13:58 Improved. Calmer today. Family meeting scheduled for tomorrow to review treatment plan. Initial observational and evaluation phase very important to understand diagnosis and direct treatment. 09/30/18 17:17 Overall improved, though regressed and more paranoid today when pressed on substance abuse and need to make life changes. Zyprexa noted to be helpful. I will add scheduled dose, monitor. Will likely petition court for COM if pt remains resistant to medication treatment. Will continue discharge planning including SA referral and possible residential tx through DD/MR. 10/01/18 13:41 Remains paranoid. Will observe on scheduled Zyprexa. 10/04/18 16:32 Much improved overall. CCM. Finalize d/c plan. 10/05/18 16:34 Psychosis: Continued improvement. CCM. 10/06/18 15:41 Psychosis: Approaching stability. CCM. 10/07/18 16:25 Psychosis: Improved with Zyprexa. Will CCM. Await recommendations from shoe caser. 10/12/18 15:07 Psychosis: Much improved. Behaviorally stable. Limited residential options for d/c. I am encouraged that resources are available to patient if he remains active in treatment with MHP's. He acknowledges this. He has demonstrated no recent aggression or paranoia. CC will contact pt's mother and inquire her level of comfort with him returning to her home in the interim. Subjective: Pt seen, discussed with staff, chart reviewed. Appreciate Dr. Teran's detailed notes. Results of [facility] evaluation noted. Pt interviewed in Treatment Team meeting. He was asked what his plans were at discharge and he stated he was willing to go to his mother's home temporarily to await services that would allow him to get his own place. He agrees to take the current medication on a daily basis and he agrees to follow up with MHP's. He remains in good behavioral control. Compliant with all treatments. No aggression noted. Objective: Vital Signs Temp Pulse Resp BP Pulse Ox 36.9 C 79 16 121/59 H 98 10/12/18 06:00 10/12/18 06:00 10/12/18 06:00 10/12/18 06:00 10/12/18 06:00 MSE: Adequately groomed, pleasant and cooperative. Affect is euthymic, stable, approp. Mood is "good." TP is generally linear. TC reveals no mention of paranoid thoughts. No SI/HI/. - Time Spent With Patient Time Spent With Patient: 25" ICD10 Worksheet Patient Problems: Problems Problem Status Onset Homicidal ideation Acute
[2018-10-12] MEDS: OLANZapine DISINTEGR 10 MG TAB PO SCH (19:05)
[2018-10-12] MEDS: MELATONIN 3 MG TAB PO PRN (19:05)
[2018-10-13] MEDS: LORazepam 1 MG TAB PO PRN ×3 (08:35→18:12)
--- NOTE | 2018-10-13 16:46 | ASMTBHFAM ---
Notes Note: Notes: CC meet with MOC in length today to discuss discharge options. CC will provide update to treatment team in the morning.* Date Signed: 10/13/2018 04:45 PM Electronically Signed By:Benito Sierra
--- NOTE | 2018-10-13 16:47 | SOAPPROG ---
SOAP Progress Note Assessment/Plan: Assessment: Plan: 09/29/18 13:58 Improved. Calmer today. Family meeting scheduled for tomorrow to review treatment plan. Initial observational and evaluation phase very important to understand diagnosis and direct treatment. 09/30/18 17:17 Overall improved, though regressed and more paranoid today when pressed on substance abuse and need to make life changes. Zyprexa noted to be helpful. I will add scheduled dose, monitor. Will likely petition court for COM if pt remains resistant to medication treatment. Will continue discharge planning including SA referral and possible residential tx through DD/MR. 10/01/18 13:41 Remains paranoid. Will observe on scheduled Zyprexa. 10/04/18 16:32 Much improved overall. CCM. Finalize d/c plan. 10/05/18 16:34 Psychosis: Continued improvement. CCM. 10/06/18 15:41 Psychosis: Approaching stability. CCM. 10/07/18 16:25 Psychosis: Improved with Zyprexa. Will CCM. Await recommendations from bilingual case manager. 10/12/18 15:07 Psychosis: Much improved. Behaviorally stable. Limited residential options for d/c. I am encouraged that resources are available to patient if he remains active in treatment with MHP's. He acknowledges this. He has demonstrated no recent aggression or paranoia. CC will contact pt's mother and inquire her level of comfort with him returning to her home in the interim. 10/13/18 16:46 Psychosis: Continued improvement. CCM. Need to finalize d/c plan. Subjective: Pt seen, discussed with staff. Reports no change. States, per usual, that he wants to go home so he can go to work. States, "I don't want to hurt animals any more or do drugs." Behaviors remain stable. Compliant with meds. States he will take them when he leaves. Mother reportedly had court this morning for guardianship, but it is unknown how this went. Objective: Vital Signs Temp Pulse Resp BP Pulse Ox 36.8 C 72 16 99/50 L 96 10/13/18 06:00 10/13/18 06:00 10/13/18 06:00 10/13/18 06:00 10/13/18 06:00 MSE: Calm, coop. Affect is restricted, stable, approp. Mood is "good." TP is generally linear. TC reveals no mention of paranoid delusions. Denies SI/HI /. - Time Spent With Patient Time Spent With Patient: 15" ICD10 Worksheet Patient Problems: Problems Problem Status Onset Homicidal ideation Acute
[2018-10-13] MEDS: OLANZapine DISINTEGR 10 MG TAB PO SCH (20:13)
[2018-10-13] MEDS: MELATONIN 3 MG TAB PO PRN (20:13)
--- NOTE | 2018-10-14 08:30 | ASMTCMCOM ---
CM Note CM Note Notes: CC supplied client with relapse Prevention plan this morning. Client describes feeling of "unknown anxiety," currently rated a 7/10, most likely due to his want to leave. Client denies any feelings of depression, S/I-H/I and/or AVH. Clt states, he would like to return home and will be compliant with all necessary rules, etc. CC reached out to [facility] for folllow up apts. Waiting to hear back. Date Signed: 10/14/2018 08:30 AM Electronically Signed By:Benito Sierra
[2018-10-14] MEDS: LORazepam 1 MG TAB PO PRN ×3 (08:53→19:03)
--- NOTE | 2018-10-14 11:47 | ASMTCMCOM ---
CM Note CM Note Notes: CC spoke to hospital liaison Callie during rounds regarding this client and poss. of [facility] admission with [facility], etc. She noted that [facility] will have a meeting for client later today and will provide feed back to CC regarding any progress made, etc. Also, CC and treatment team spoke to client regarding his future inability to purchase firearms or joining the , etc. Client appeared to take the information well. Will continue to assess. Date Signed: 10/14/2018 11:46 AM Electronically Signed By:Benito Sierra
--- NOTE | 2018-10-14 14:21 | ASMTCMCOM ---
CM Note CM Note Notes: CC spoke to Hospital Liaison who noted, that client will be going to [facility] an is on the list to be the next male intake. CC and co-worker provided the 24 hour notice to client, who appeared to take the news well. We provided as much information to client as poss. CC will now fax over all necessary clinical information to [facility]. Date Signed: 10/14/2018 02:21 PM Electronically Signed By:Benito Sierra
--- NOTE | 2018-10-14 15:20 | SOAPPROG ---
SOAP Progress Note Assessment/Plan: Assessment: Plan: 09/29/18 13:58 Improved. Calmer today. Family meeting scheduled for tomorrow to review treatment plan. Initial observational and evaluation phase very important to understand diagnosis and direct treatment. 09/30/18 17:17 Overall improved, though regressed and more paranoid today when pressed on substance abuse and need to make life changes. Zyprexa noted to be helpful. I will add scheduled dose, monitor. Will likely petition court for COM if pt remains resistant to medication treatment. Will continue discharge planning including SA referral and possible residential tx through DD/MR. 10/01/18 13:41 Remains paranoid. Will observe on scheduled Zyprexa. 10/04/18 16:32 Much improved overall. CCM. Finalize d/c plan. 10/05/18 16:34 Psychosis: Continued improvement. CCM. 10/06/18 15:41 Psychosis: Approaching stability. CCM. 10/07/18 16:25 Psychosis: Improved with Zyprexa. Will CCM. Await recommendations from shelter case manager. 10/12/18 15:07 Psychosis: Much improved. Behaviorally stable. Limited residential options for d/c. I am encouraged that resources are available to patient if he remains active in treatment with P's. He acknowledges this. He has demonstrated no recent aggression or paranoia. CC will contact pt's mother and inquire her level of comfort with him returning to her home in the interim. 10/13/18 16:46 Psychosis: Continued improvement. CCM. Need to finalize d/c plan. 10/14/18 15:21 Psychosis: Behaviorally stable. Functioning adequately in this setting. I agree with transfer to [place] if possible to allow time to fully stabilize and for waiver to be completed and supported housing is available. Subjective: Pt seen, discussed with staff, interviewed in Treatment Team meeting with Callie Sianz from [facility] present by phone. She outlined the plan for patient to possibly go to [facility]. Team is supportive of this to allow for the most complete stabilization and also permit time for community resources to catch up. Discussed this with patient and also talked about the fact that he would not be able to legally purchase a gun due to his STC. He argues the latter point, saying, "It doesn't make sense that I can buy a BB gun but not a real gun." Objective: Vital Signs Temp Pulse Resp BP Pulse Ox 36.8 C 67 16 110/61 95 10/14/18 06:00 10/14/18 06:00 10/14/18 06:00 10/14/18 06:00 10/14/18 06:00 MSE: Calm, coop. Affect is restricted, stable. Mood is "good." TP is linear with familiar preoccupations. TC reveals some reemergent paranoia, poor reality testing, poor I/J. - Time Spent With Patient Time Spent With Patient: 25" ICD10 Worksheet Patient Problems: Problems Problem Status Onset Homicidal ideation Acute
[2018-10-14] MEDS: MELATONIN 3 MG TAB PO PRN (19:02)
[2018-10-14] MEDS: OLANZapine DISINTEGR 10 MG TAB PO SCH (19:03)
--- NOTE | 2018-10-15 08:00 | SOAPPROG ---
SOAP Progress Note Assessment/Plan: Assessment: Autism Spectrum Disorder. Improvement noted. (see subjective/objective note). Patient could benefit from continued inpatient hospitalization for crisis stabilization, safety, and medication evaluation. Support system has inability to manage functional impairment at lower level of care. Plan: 1. Psychotropic medications: No med changes at this time. 2. Review with patient informed consent and recommendations for psychotropic medication treatment listed below 3. Labs: no additional labs at this time 4. Therapy: continue milieu and group therapy 5. Further investigation including gathering information from patients relatives and review of past case records to inform treatment plan. 6. Safety/Wellness plan and follow-up outpatient appointments to be established prior to discharge. Next steps are for patient to meet with animal care provider to plan a safe discharge plan and establish outpatient services for ongoing treatment. 7. Confer with inpatient treatment team regarding treatment plan. 8. Psychosocial stressors addressed through spring encaser. 9. [facility] status: [facility] 10. Consider discharge next week if patient is in stable condition, safe, and has a safe discharge plan. PSYCHOTROPIC MEDICATION TREATMENT INFORMED CONSENT and RECOMMENDATIONS: Review nature of condition, diagnosis, and prognosis. Review nature and purpose of psychotropic medication treatment. Review type of psychotropic medications being ordered. Review risk and benefits of psychotropic medication treatment. Review probable length of time patient will need to take medications. Review risk and benefits of not undergoing psychotropic medication treatment. Review alternative treatments to psychotropic medications. Review psychotropic medications contraindications, drug-drug interactions, side effects, and importance of reporting any side effects to a psychiatric provider or nurse during inpatient hospitalization, and upon discharge to patients psychiatric outpatient provider, primary care provider, or other health lpn care manager. Review importance of asking a nurse, psychiatric provider, or primary care provider any questions or problems concerning the psychotropic medications. Verify patient understands the information that has been provided, and understands, accepts, and agrees to psychotropic medications. Review patients safety plan and importance of patient to report to staff while hospitalized if patient is ever a danger to self/others, or unable to care for self, and upon discharge, the importance for patient to contact [facility] or [facility], or go to the nearest emergency room, if patient is ever a danger to self/others, or unable to care for self. Recommend that upon discharge patient establish medication management treatment with a psychiatric provider, establishes routine therapy appointments, and follow-up with primary care provider. Verify patient understands and agrees to these recommendations. 10/15/18 07:59 Subjective: Following up with patient for evaluation of safety. Patient states, "Doing fine. When am I going to [facility]?" Patient does not report undesirable side effects from the medications, and agrees to continue current medications. Patient denies SI/HI. Objective: Vital Signs Temp Pulse Resp BP Pulse Ox 36.6 C 81 16 118/58 L 95 10/15/18 06:00 10/15/18 06:00 10/15/18 06:00 10/15/18 06:00 10/15/18 06:00 NURSING REPORT: Consulted with nursing for update on patients progress in treatment. Nurses report patient is engaged in treatment, is attending groups, slept 8 hours, expresses the following psychiatric symptoms: anxiety; exhibits the following psychiatric symptoms: at times irritable and agitated; is agreeable to medications and taking as prescribed with no report of side effects , with no s/s of EPS/akathisia, and denies SI/HI, denies A/V hallucinations, and denies delusions. MSE: The patient is an under-nourished male looking stated chronological age. Attire is appropriate and dress is casual. Grooming status is appropriate. Ambulation is independent. Gait is normal and coordinated. Posture is normal and relaxed. Eye contact is appropriate. Motor activity is appropriate with purposeful, organized, coordinated movements; with no involuntary movements. Attitude is cooperative, at times guarded. Patient appears attentive and does relate well to this interviewer. Language production is spontaneous. R/R/V are normal. Tone is appropriate. Articulation is clear. Patient reports mood as okay with congruent affect. Patients thought process is fairly linear and logical. Patient does not report suicidal/homicidal thoughts, ideas, or plans. Patient denies auditory, visual hallucinations. Patient denies delusions. Patient does not appear to be attending to internal stimuli. Patients attention and concentration are poor. Patient is oriented to person, place, time. Patients insight and judgment poor. - Time Spent With Patient Time Spent With Patient: 15 minutes, met with patient individually. - Pending Discharge Pending Discharge Within 24 Hours: No Pending Discharge Within 48 Hours: No ICD10 Worksheet Patient Problems: Problems Problem Status Onset Homicidal ideation Acute
[2018-10-15] MEDS: LORazepam 1 MG TAB PO PRN ×3 (10:01→19:39)
--- NOTE | 2018-10-15 13:47 | ASMTCMCOM ---
CM Note CM Note Notes: Pt. reports feeling "irritated" adding about "still being here. My 18th day". Pt. stated he doesn't want to go to [facility]. Pt. stated he wants to go to the homeless senior care. Pt. stated he is "trying to get my hold overturned". Pt. stated "I will get kicked out of the senior care". Pt. stated he "need to get back to my job". Pt. stated he kept waking up last night. Pt. stated "I guess" when asked if he is getting enough to eat. Pt. reports no improvement from his medications. Pt. denied SI, HI, AVH and paranoia. Pt. presents as alert, disorganized, lacking insight, and cooperative. Staff report pt. sleeping 9.5 hours and being medication compliant. Pt's discharge plan update as follows: P stated "Madina Hayden at [facility], and they dont need anything further on our mutual Ct today, as there are no beds available. [facility] is slated for two male discharges on 10/19, so Im [facility] Date Signed: 10/15/2018 01:47 PM Electronically Signed By:Jinny Gonzalez
--- NOTE | 2018-10-15 15:26 | SOAPPROG ---
SOAP Progress Note Assessment/Plan: Assessment: Plan: 09/29/18 13:58 Improved. Calmer today. Family meeting scheduled for tomorrow to review treatment plan. Initial observational and evaluation phase very important to understand diagnosis and direct treatment. 09/30/18 17:17 Overall improved, though regressed and more paranoid today when pressed on substance abuse and need to make life changes. Zyprexa noted to be helpful. I will add scheduled dose, monitor. Will likely petition court for COM if pt remains resistant to medication treatment. Will continue discharge planning including SA referral and possible residential tx through DD/MR. 10/01/18 13:41 Remains paranoid. Will observe on scheduled Zyprexa. 10/04/18 16:32 Much improved overall. CCM. Finalize d/c plan. 10/05/18 16:34 Psychosis: Continued improvement. CCM. 10/06/18 15:41 Psychosis: Approaching stability. CCM. 10/07/18 16:25 Psychosis: Improved with Zyprexa. Will CCM. Await recommendations from block and case maker. 10/12/18 15:07 Psychosis: Much improved. Behaviorally stable. Limited residential options for d/c. I am encouraged that resources are available to patient if he remains active in treatment [facility]. He acknowledges this. He has demonstrated no recent aggression or paranoia. CC will contact pt's mother and inquire her level of comfort with him returning to her home in the interim. 10/13/18 16:46 Psychosis: Continued improvement. CCM. Need to finalize d/c plan. 10/14/18 15:21 Psychosis: Behaviorally stable. Functioning adequately in this setting. I agree with transfer to [place] if possible to allow time to fully stabilize and for waiver to be completed and supported housing is available. Subjective: Pt seen, discussed with staff. Fairly aloof today. Requested to talk to his court-appointed attorney recruiter. Not happy about guardianship. Accepting of [place] placement. I talked with Callie from [facility] who informs me there are people there who are concerned that we did not notify the box worker that pt made homicidal threats towards her. Objective: Vital Signs Temp Pulse Resp BP Pulse Ox 36.6 C 81 16 118/58 L 95 10/15/18 06:00 10/15/18 06:00 10/15/18 06:00 10/15/18 06:00 10/15/18 06:00 MSE: Marginally groomed, cooperative. Affect is restricted, stable, approp. Mood is "OK." TP is generally linear with continued perseverations on legal issues. TC reveals no overt paranoia. ICD10 Worksheet Patient Problems: Problems Problem Status Onset Homicidal ideation Acute
[2018-10-15] MEDS: MELATONIN 3 MG TAB PO PRN (19:39)
[2018-10-15] MEDS: OLANZapine DISINTEGR 10 MG TAB PO SCH (19:39)
[2018-10-16] MEDS: LORazepam 1 MG TAB PO PRN ×3 (09:10→17:41)
--- NOTE | 2018-10-16 17:49 | SOAPPROG ---
SOAP Progress Note Assessment/Plan: Assessment: Per Dr. Nova's note from 10/14/18: 10/14/18 15:21 Psychosis: Behaviorally stable. Functioning adequately in this setting. I agree with transfer to [place] if possible to allow time to fully stabilize and for waiver to be completed and supported housing is available. Subjective: Pt seen, discussed with staff. Fairly aloof today. Requested to talk to his court-appointed workers compensation attorney. Not happy about guardianship. Accepting of [place] placement. I talked with Callie from [facility] who informs me there are people there who are concerned that we did not notify the flow worker that pt made homicidal threats towards her. WEEKEND PLAN: 10/16/18 17:45 1. Patient told CC on Thursday he did not want to go to [facility]. [facility] is hoping to have bed available on 10/19/18. 2. Patient perseverates on perceiving injustice of "keeping me here" in hospital for "too long." He refers to Josep Ortega (the [place] bomber) several times in conversations. He has made threats in past to "blow up buildings," but has not made any specific threats (except to torture and kill animals) during this admission. He denied any SI/HI today. 3. Treatment team is waiting for possible [place] placement next week. Subjective: Patient presents the same as last weekend without any noticeable change. He is wearing the same hoodie sweatshirt he wears almost every day. He continues to complain about being kept in hospital "for eighteen days." He says he is going to get the "hold overturned" (patient is on STC), and threatens legal action if he is not discharged. Patient is aware that [facility] is seeking placement at [facility] and says he doesn't want to go there. He denies any SI/HI today. Objective: Vital Signs Temp Pulse Resp BP Pulse Ox 36.6 C 80 14 141/63 H 94 10/16/18 06:00 10/16/18 06:00 10/16/18 06:00 10/16/18 06:00 10/16/18 06:00 MSE: Affect: Irritable Mood: "Fine" TP: Goal-directed but perseverates on discharge TC: Denies SI/HI, but makes vague threats about what will happen if he isn't discharged (no plan or intent to hurt any specific individuals) Insight/Judgment: Poor - Time Spent With Patient Time Spent With Patient: 15" - Pending Discharge Pending Discharge Within 24 Hours: No Pending Discharge Within 48 Hours: No ICD10 Worksheet Patient Problems: Problems Problem Status Onset Homicidal ideation Acute
[2018-10-16] MEDS: OLANZapine DISINTEGR 10 MG TAB PO SCH (19:16)
[2018-10-16] MEDS: MELATONIN 3 MG TAB PO PRN (19:18)
[2018-10-17] MEDS: LORazepam 1 MG TAB PO PRN ×3 (08:17→17:52)
--- NOTE | 2018-10-17 18:48 | SOAPPROG ---
SOAP Progress Note Assessment/Plan: Assessment: Per Dr. Nova's note from 10/14/18: 10/14/18 15:21 Psychosis: Behaviorally stable. Functioning adequately in this setting. I agree with transfer to [place] if possible to allow time to fully stabilize and for waiver to be completed and supported housing is available. Subjective: Pt seen, discussed with staff. Fairly aloof today. Requested to talk to his court-appointed patent prosecution attorney. Not happy about guardianship. Accepting of [place] placement. I talked with Callie from [facility] who informs me there are people there who are concerned that we did not notify the grove worker that pt made homicidal threats towards her. WEEKEND PLAN: 10/16/18 17:45 1. Patient told CC on Thursday he did not want to go to [facility]. [facility] is hoping to have bed available on 10/19/18. 2. Patient perseverates on perceiving injustice of "keeping me here" in hospital for "too long." He refers to Josep Ortega (the [place] bomber) several times in conversations. He has made threats in past to "blow up buildings," but has not made any specific threats (except to torture and kill animals) during this admission. He denied any SI/HI today. 3. Treatment team is waiting for possible [place] placement next week. 10/17/18 18:45 1. No change 2. Patient continues to request higher doses of Ativan. He also request "Valium " and "xanax" by name. MD has explained many times that these medications carry risk of dependence and must be used sparingly, only when needed. 3. Patient did shower, wash his hair and do his own laundry today. 4. Awaiting placement at [facility], possibly this week. 5. [facility] Subjective: Patient took a shower and washed his hair this AM. He told RN that his dose of Ativan wasn't "high enough." has never seen patient agitated, restless, fidgeting, hyperventilating or in any acute distress. He does not ever show signs or endorse sxs of panic. He frequently reports that he is "bored" from being in hospital "so long." He denies any SI/HI today. Objective: Vital Signs Temp Pulse Resp BP Pulse Ox 36.6 C 80 14 141/63 H 94 10/16/18 06:00 10/16/18 06:00 10/16/18 06:00 10/16/18 06:00 10/16/18 06:00 MSE: Affect: Euthymic Mood: "OK" TP: Goal-directed most of the time TC: Denies any SI/HI Insight/Judgment: Poor - Time Spent With Patient Time Spent With Patient: 15" - Pending Discharge Pending Discharge Within 24 Hours: No Pending Discharge Within 48 Hours: No ICD10 Worksheet Patient Problems: Problems Problem Status Onset Homicidal ideation Acute
[2018-10-17] MEDS: OLANZapine DISINTEGR 10 MG TAB PO SCH (19:05)
[2018-10-17] MEDS: MELATONIN 3 MG TAB PO PRN (19:40)
[2018-10-18] MEDS: LORazepam 1 MG TAB PO PRN ×3 (08:39→19:34)
[2018-10-18] MEDS: OLANZapine DISINTEGR 10 MG TAB PO SCH (19:33)
[2018-10-18] MEDS: MELATONIN 3 MG TAB PO PRN (19:34)
[2018-10-19] MEDS: LORazepam 1 MG TAB PO PRN ×3 (07:51→19:16)
--- NOTE | 2018-10-19 12:53 | ASMTCMCOM ---
CM Note CM Note Notes: CC informed MOC to issues with client getting transferred to [facility], etc. MOC thanked this web content writer for the update.* Date Signed: 10/19/2018 12:53 PM Electronically Signed By:Benito Sierra
[2018-10-19] MEDS: MELATONIN 3 MG TAB PO PRN (19:16)
[2018-10-19] MEDS: OLANZapine DISINTEGR 10 MG TAB PO SCH (19:16)
--- NOTE | 2018-10-19 19:18 | SOAPPROG ---
SOAP Progress Note Assessment/Plan: Assessment: 22yo with unspecified developmental disorder, unspecified psychosis, and substance use d/o 10/19/18 13:30 planned d/c to [facility] today. has been reported to be continuing with stable behavior in structured setting, functioning adequately, taking medications. slept 8hr, eating meals later in day, director of primary care reported [facility] holding off on transfer pending court hearing scheduled for 10/21. cc t/w patient who left [facility] for his court-appointed atty. on eval, pt cooperative, dressed in tie-dyed hoodie and jeans, wearing glasses, overall calm, nml speech rate/vol, restricted affect, expressed frustration with continued hospitalization, and states feeling "more depressed" that he has been here "for 22 days", but denied ah/vh or any si/hi . i/j impaired. pt stated he wanted to go to [place] today b/c this was planned and he felt he had no choice, and wants "to get it over with", and also b/c "the weather has been cold outside anyway" and doesn't have another place to go yet; states he left [facility] w/atty to cancel hearing so he could go to [place] today, denied any physical complaints. reports wanting something better for sleep, altho reported by staff to be sleeping 8h Plan: cont current meds d/w cc, who reports [place] has agreed to hold bed pending [facility] hearing vs stipulation. pt left [facility] for atty Objective: Vital Signs Temp Pulse Resp BP Pulse Ox 36.7 C 77 18 127/83 H 97 10/18/18 16:00 10/18/18 16:00 10/18/18 16:00 10/18/18 16:00 10/18/18 16:00 - Time Spent With Patient Time Spent With Patient: 25min ICD10 Worksheet Patient Problems: Problems Problem Status Onset Homicidal ideation Acute
[2018-10-20] MEDS: LORazepam 1 MG TAB PO PRN ×3 (09:55→18:14)
--- NOTE | 2018-10-20 11:13 | ASMTCMCOM ---
CM Note CM Note Notes: CC and provider spoke to client about STC court and he noted that "canceled the hearing, I spoke to my food operations manager and she is going to submit it with the court." CC will follow up with [employer] and Court to get verification that this client's court hearing for STC has been canceled. Date Signed: 10/20/2018 11:13 AM Electronically Signed By:Benito Sierra
--- NOTE | 2018-10-20 15:17 | SOAPPROG ---
SOAP Progress Note Assessment/Plan: Assessment: Plan: 09/29/18 13:58 Improved. Calmer today. Family meeting scheduled for tomorrow to review treatment plan. Initial observational and evaluation phase very important to understand diagnosis and direct treatment. 09/30/18 17:17 Overall improved, though regressed and more paranoid today when pressed on substance abuse and need to make life changes. Zyprexa noted to be helpful. I will add scheduled dose, monitor. Will likely petition court for COM if pt remains resistant to medication treatment. Will continue discharge planning including [facility] referral and possible residential tx through DD/MR. 10/01/18 13:41 Remains paranoid. Will observe on scheduled Zyprexa. 10/04/18 16:32 Much improved overall. CCM. Finalize d/c plan. 10/05/18 16:34 Psychosis: Continued improvement. CCM. 10/06/18 15:41 Psychosis: Approaching stability. CCM. 10/07/18 16:25 Psychosis: Improved with Zyprexa. Will CCM. Await recommendations from rn field case manager. 10/12/18 15:07 Psychosis: Much improved. Behaviorally stable. Limited residential options for d/c. I am encouraged that resources are available to patient if he remains active in treatment with [facility]HP's. He acknowledges this. He has demonstrated no recent aggression or paranoia. CC will contact pt's mother and inquire her level of comfort with him returning to her home in the interim. 10/13/18 16:46 Psychosis: Continued improvement. CCM. Need to finalize d/c plan. 10/14/18 15:21 Psychosis: Behaviorally stable. Functioning adequately in this setting. I agree with transfer to [place] if possible to allow time to fully stabilize and for waiver to be completed and supported housing is available. 10/20/18 15:18 Psychosis: Continues to do well. Will CCM. Await placement at [place]. Subjective: Pt seen, discussed with staff. Remains compliant and pleasant. Was very clear when talking to CC and myself that he wants to withdraw his request to challenge his STC because he wants to go to [place] "so they can help me get free housing." He is clear and calm and voices a good understanding of his right to request a hearing. Objective: Vital Signs Temp Pulse Resp BP Pulse Ox 36.7 C 77 18 127/83 H 97 10/18/18 16:00 10/18/18 16:00 10/18/18 16:00 10/18/18 16:00 10/18/18 16:00 MSE: Calm, coop. Affect is restricted, stable, approp. Mood is "good." TP is linear. TC reveals no mention of paranoid ideas. - Time Spent With Patient Time Spent With Patient: 25" ICD10 Worksheet Patient Problems: Problems Problem Status Onset Homicidal ideation Acute
--- NOTE | 2018-10-20 15:23 | SOAPPROG ---
SOAP Progress Note Assessment/Plan: Assessment: Boxjose d's fracture, right hand, 45 degrees of angulation. XR discussed with Radiology. Ordered orthopedics consult. Added ibuprofen for pain control; acetaminophen has already been ordered. 09/29/18 15:13 On reassessment today, fracture is healing with no limitations on use of right hand. He has required no pain meds since 10/01/2018. There is no need for orthopedic follow-up. 10/20/18 15:23 Subjective: Follow-up on boxer's fracture. Orthopedic evaluation was not arranged. Objective: Vital Signs Temp Pulse Resp BP Pulse Ox 36.7 C 77 18 127/83 H 97 10/18/18 16:00 10/18/18 16:00 10/18/18 16:00 10/18/18 16:00 10/18/18 16:00 Physical Exam - Physical Exam General Appearance: WD/WN, alert, no apparent distress Extremities: other (Right hand with no obvious deformity. Nontender of her 5th metacarpal. Normal range of motion, normal strength, normal sensation.) ICD10 Worksheet Patient Problems: Problems Problem Status Onset Homicidal ideation Acute
[2018-10-20] MEDS: OLANZapine DISINTEGR 10 MG TAB PO SCH ×2 (19:06→21:02)
[2018-10-20] MEDS: MELATONIN 3 MG TAB PO PRN ×2 (19:06→21:01)
[2018-10-21] MEDS: LORazepam 1 MG TAB PO PRN ×3 (08:50→19:14)
--- NOTE | 2018-10-21 12:04 | ASMTCMCOM ---
CM Note CM Note Notes: I have spoken to the supervisor forming and tempering at [facility], #[phone]. Their Maintenance Aide will not accept this patient until he has been cleared by an Orthopedic Surgeon. Spoke with Dr. Alcantar, he does not feel a consult is warranted at this time. This case will be escalated to Director of CM to discuss next steps. CM will continue to follow. Date Signed: 10/21/2018 12:03 PM Electronically Signed By:Farnaz Huizar RN
--- NOTE | 2018-10-21 16:23 | ASMTCMCOM ---
CM Note CM Note Notes: Spoke with Crow Snyder about case and current barrier to admission into [facility]. With Crow Snyder's assistance, was able to get Dr. Perdue with [facility] to agree to consult on Thursday, exact time unclear. Yolanda roach and will notify the nursing staff. If there are any issues on Thursday, please feel free to contact me at #[phone]. Plan: Hopefully to [facility] after clearance from Orthopedics. Date Signed: 10/21/2018 04:22 PM Electronically Signed By:Farnaz Huizar RN
--- NOTE | 2018-10-21 18:03 | SOAPPROG ---
SOAP Progress Note Assessment/Plan: Assessment: Plan: 09/29/18 13:58 Improved. Calmer today. Family meeting scheduled for tomorrow to review treatment plan. Initial observational and evaluation phase very important to understand diagnosis and direct treatment. 09/30/18 17:17 Overall improved, though regressed and more paranoid today when pressed on substance abuse and need to make life changes. Zyprexa noted to be helpful. I will add scheduled dose, monitor. Will likely petition court for COM if pt remains resistant to medication treatment. Will continue discharge planning including SA referral and possible residential tx through DD/MR. 10/01/18 13:41 Remains paranoid. Will observe on scheduled Zyprexa. 10/04/18 16:32 Much improved overall. CCM. Finalize d/c plan. 10/05/18 16:34 Psychosis: Continued improvement. CCM. 10/06/18 15:41 Psychosis: Approaching stability. CCM. 10/07/18 16:25 Psychosis: Improved with Zyprexa. Will CCM. Await recommendations from disease case manager rn. 10/12/18 15:07 Psychosis: Much improved. Behaviorally stable. Limited residential options for d/c. I am encouraged that resources are available to patient if he remains active in treatment with [facility]HP's. He acknowledges this. He has demonstrated no recent aggression or paranoia. CC will contact pt's mother and inquire her level of comfort with him returning to her home in the interim. 10/13/18 16:46 Psychosis: Continued improvement. CCM. Need to finalize d/c plan. 10/14/18 15:21 Psychosis: Behaviorally stable. Functioning adequately in this setting. I agree with transfer to [place] if possible to allow time to fully stabilize and for waiver to be completed and supported housing is available. 10/20/18 15:18 Psychosis: Continues to do well. Will CCM. Await placement at [place]. 10/21/18 18:02 Psychosis: No interval change. Will attempt to get an orthopedic opinion on need for further treatment on his hand. Await placement at [place]. Subjective: Pt seen, discussed with staff. Disappointed that he can't go to [place] due to medical denial. Understanding about this, however. Continues to want to plan appropriately for the future. Concerned about housing and work. Remains compliant with meds. No C/o's. Objective: Vital Signs Temp Pulse Resp BP Pulse Ox 36.6 C 85 16 100/61 97 10/20/18 21:49 10/20/18 21:49 10/20/18 21:49 10/20/18 21:49 10/18/18 16:00 MSE: Calm, coop. Affect is restricted, stable, approp. Mood is "good." TP is linear. TC reveals some ongoing paranoia. - Time Spent With Patient Time Spent With Patient: 15" ICD10 Worksheet Patient Problems: Problems Problem Status Onset Homicidal ideation Acute
[2018-10-21] MEDS: MELATONIN 3 MG TAB PO PRN (19:13)
[2018-10-21] MEDS: OLANZapine DISINTEGR 10 MG TAB PO SCH (19:15)
[2018-10-22] MEDS: LORazepam 1 MG TAB PO PRN ×2 (08:44→13:43)
--- NOTE | 2018-10-22 09:05 | PDGENHP ---
History and Physical History and Physical: Please see dictated consultation for full report. In short, this is a 22yo male who sustained a R 5th MC neck fx about 1 month ago punching a brick wall. New xrays taken recently show a healing fracture. On exam today he has no tenderness over the fracture site and full motion and function. No immobilization or further care is necessary. He is safe for transfer.
--- NOTE | 2018-10-22 12:31 | ASMTBHDC ---
Notes Note: Notes: Pt. reports feeling "irritated I'm still here", adding he feels "alright, I guess". Pt. stated he "cancelled court on Thursday". Pt. reports he "woke up 20-30 times" last night, adding he had "nightmares". Pt. reports feeling a "little" rested. Pt. reports getting enough to eat and attending groups. Pt. reports no issues with his medications, then adding "giving me nightmares". Pt. stated he has been able to read. Pt. denies having any issues while on the unit. Pt. denied SI, HI, AVH and paranoia. Pt. stated he "want to be discharged". Pt. presents as alert, mostly calm, a bit frustrated, fair eye contact, appearing to have showered, and cooperative. Staff report pt. sleeping 10.5 hours and being medication compliant. CC has reached out with requested Doctor note to [employer] [facility], waiting to hear back about pt's discharge plan. Date Signed: 10/22/2018 12:30 PM Electronically Signed By:Jinny Gonzalez
--- NOTE | 2018-10-22 13:44 | GCON ---
[f rep st] CONSULTATION This is a consultation for Dr. Alcantar in the behavioral health unit. CHIEF COMPLAINT: Right hand injury. HISTORY OF PRESENT ILLNESS: The patient is a 22-year-old male who was admitted to the behavioral health unit on September 28, 2018, with homicidal ideation. He states that prior to his admission he punched a brick wall. X-rays at the time showed a metacarpal neck fracture. During his time in the inpatient unit he states that his pain improved in the hand, and he began range of motion. Currently he states he has no pain and no limitation in the hand. New x-rays were taken. REVIEW OF SYSTEMS: A complete 10-point review of systems is negative except as noted above. PAST MEDICAL HISTORY: Psychiatric disorder, possible personality disorder. ALLERGIES: No known drug allergies. MEDICATIONS: Zoloft, see MAR for other meds SOCIAL HISTORY: He smokes cigarettes. Does not drink alcohol. Does use IV drugs. FAMILY HISTORY: Noncontributory. EXAM: GENERAL: Alert and orientedx3, in the behavioral health unit. He is not in any distress. Flat affect. MUSCULOSKELETAL: Right hand: He has a slightly sunken small finger MP joint. He has full extension with no lag at the small finger MP joint. He makes a full fist. He is nontender to palpation over the metacarpal neck. IMAGING: X-ray of the right hand shows a metacarpal neck fracture with mild dorsal angulation. There is abundant callus formation. ASSESSMENT AND PLAN: Healed right metacarpal neck fracture. He does not require any immobilization. He may return to activity as tolerated. I discussed with him that he will always have a slightly sunken knuckle in the hand. It should not affect his function. For the next 2 wks he should be careful with that hand, in particular punching hard objects. Otherwise he may return to full activity. /[id number]/MODL MTDD
[2018-10-22 13:45] VITALS: BP 120/57
--- NOTE | 2018-10-22 13:45 | SOAPPROG ---
SOAP Progress Note Assessment/Plan: Assessment: Plan: 09/29/18 13:58 Improved. Calmer today. Family meeting scheduled for tomorrow to review treatment plan. Initial observational and evaluation phase very important to understand diagnosis and direct treatment. 09/30/18 17:17 Overall improved, though regressed and more paranoid today when pressed on substance abuse and need to make life changes. Zyprexa noted to be helpful. I will add scheduled dose, monitor. Will likely petition court for COM if pt remains resistant to medication treatment. Will continue discharge planning including SA referral and possible residential tx through DD/MR. 10/01/18 13:41 Remains paranoid. Will observe on scheduled Zyprexa. 10/04/18 16:32 Much improved overall. CCM. Finalize d/c plan. 10/05/18 16:34 Psychosis: Continued improvement. CCM. 10/06/18 15:41 Psychosis: Approaching stability. CCM. 10/07/18 16:25 Psychosis: Improved with Zyprexa. Will CCM. Await recommendations from case management specialist. 10/12/18 15:07 Psychosis: Much improved. Behaviorally stable. Limited residential options for d/c. I am encouraged that resources are available to patient if he remains active in treatment with MHP's. He acknowledges this. He has demonstrated no recent aggression or paranoia. CC will contact pt's mother and inquire her level of comfort with him returning to her home in the interim. 10/13/18 16:46 Psychosis: Continued improvement. CCM. Need to finalize d/c plan. 10/14/18 15:21 Psychosis: Behaviorally stable. Functioning adequately in this setting. I agree with transfer to [place] if possible to allow time to fully stabilize and for waiver to be completed and supported housing is available. 10/20/18 15:18 Psychosis: Continues to do well. Will CCM. A[place] placement at [facility]. 10/21/18 18:02 Psychosis: No interval change. Will attempt to get an orthopedic opinion on need for further treatment on his hand. Await placement at [facility]. Subjective: Pt seen, discussed with staff. Awaiting word from [facility] re: transfer. Many thanks to Dr. Perdue for evaluating pt's hand. Objective: Vital Signs Temp Pulse Resp BP Pulse Ox 36.6 C 85 16 100/61 97 10/20/18 21:49 10/20/18 21:49 10/20/18 21:49 10/20/18 21:49 10/18/18 16:00 ICD10 Worksheet Patient Problems: Problems Problem Status Onset Homicidal ideation Acute
--- NOTE | 2018-10-22 14:59 | BDS ---
[f rep st] BEHAVIORAL HEALTH DISCHARGE SUMMARY REASON FOR ADMISSION: Patient is a 22-year-old, male with a history of previous treatment for developmental issues and behavioral issues as an adolescent. He has had no other specific psychiatric attention since that time. He was living with his father out of [place] for a number of years and recently came back to live with his mother in the past 6 to 8 months. At that time, he was displaying a lot of disordered behaviors including excessive use of drugs, erratic and aggressive and violent behaviors and paranoia. His mother brought him to the walk-in clinic at [facility] where he was placed on an M1 hold after disclosing to them that he has been killing and torturing small animals. He also admitted to using marijuana heavily on a daily basis in all forms including dabbing and synthetic marijuana he gets from [employer]. His mother felt unsafe with him in the home and [facility] felt like he was a risk to others imminently placing him on a hold and transferred him to our facility. He was evaluated by [facility] in the emergency department and the hold was up held. He was admitted to the [facility] for further evaluation and treatment. Full description of the events preceding admission can be found in his admission history dated . 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 ADMITTING PHYSICAL EXAMINATION: Performed by Dr. James Fernandez revealed no specific findings. ADMISSION LABORATORY: CBC was normal. Serum chemistries were normal. Liver function was normal. Lipid profile was normal. Urine drug screen is positive for marijuana. HOSPITAL COURSE: Patient was admitted to the behavior health services inpatient unit on an M1 hold. He was initially quite agitated, verbally aggressive, paranoid. He stated that he would punish myself and other staff members for his being in the hospital. He describes a history of shooting birds and squirrels primarily with a BB gun and wounding them. He then would capture them and torture them including burning their faces with a blow torch until they were . He then would dismember them at times. He stated that he had done this to at least 800 animals in his recollection. His mother found his phone which had videos of him doing these things and showed this to me and it was definitely disturbing. He threatened to kill as many animals as he could when he left the hospital if we did not let him go. He stated that for every hour he was in the hospital, he was going to kill 100 more animals. I discussed the case at length with his mother and interviewed him numerous times prior to suggesting treatment with Zyprexa. It appeared that he was definitely paranoid, believing the government was plotting against him and that others, including his mother and the police, were also harassing following spying on him and plotting against him. He was initially reluctant to take the Zyprexa, but then did so on a voluntary basis. Ultimately, we placed him on a short- term certification, but he continued to take the medication voluntarily. The patient's hospitalization was protracted due to the seriousness of some of his behaviors and his ongoing lack of insight. At times, he would state that he did not want to kill animals anymore, that he did not want to do drugs. We had several family meetings in which she would attest to this. Later, he would then state that he was just saying this and that he intended to continue with his behaviors. We were able to obtain help through [facility] case Management to open some doors, but were not able to secure funding for any kind of supported discharge plan. It was then suggested that he go to [facility] where he could be maintained in a safe environment until other resources were available. The patient was actually agreeable to this and as he improved and his paranoia decreased, he seemed to be genuinely more remorseful for his previous behaviors and demonstrated better insight. Patient's hospitalization was uncomplicated. He did not require emergency medications, seclusion, or restraint. He displayed no physical aggression. CONDITION AT DISCHARGE: Stable. His affect was constricted, though stable. His mood was described as "okay" and his psychosis was relative ebb. He remained paranoid, though this was not influencing his behaviors directly. He was compliant with all his medications. DISCHARGE MEDICATIONS: Zyprexa 10 mg p.o. at bedtime. DISCHARGE DIAGNOSES: Unspecified psychotic disorder; cannabis use disorder, severe, likely autism spectrum disorder, unspecified. DISPOSITION: Patient left hospital via ambulance to go to [facility]. LEGAL COURSE: Patient remains on a short-term certification, transferred to [place]. ATTITUDE AT DISCHARGE: Pleasant and cooperative. Patient was accepting and actually wanted to go to [facility]. There were no pending labs or studies at time of discharge. The patient was a full code throughout his stay. The patient was not given instructions as he was transferred to a different facility. The patient was given nicotine, alcohol, cannabis, and metabolic screenings and was counseled extensively on his cannabis use. He demonstrated poor insight into this. /[id number]/[id number]
== END 2018-10-22 15:50 | DRG 885 ==
LOC: EDUNIT# → BBEH 21:22
PROVIDERS: ADMIT Psychiatry & Neurology Psychiatry; ATTEND Psychiatry & Neurology Psychiatry
DX: F29 Unspecified psychosis not due to a substance or known physiological condition (principal); F91.9 Conduct disorder, unspecified; F12.20 Cannabis dependence, uncomplicated; F84.0 Autistic disorder; R45.850 Homicidal ideations; S62.336A Displaced fracture of neck of fifth metacarpal bone, right hand, initial encounter for closed fracture; W22.09XA Striking against other stationary object, initial encounter; Z72.0 Tobacco use
CPT/HCPCS: 80305; G0480